=== PATIENT | male | born 1950 | race Caucasian/White ===

== ENCOUNTER 2022-12-20 09:09 | Inpatient (IN) | payer MEDICARE, OTHER ==
[~2022-12-20] VITALS: Ht 172.7 cm; Wt 93.5 kg
--- NOTE | 2022-12-20 09:26 | ED General ---
General Chief Complaint: Abdominal/GI Problems Stated Complaint: N/V History of Present Illness Date Seen by Provider: Dec 20, 2022 Time Seen by Provider: 09:26 Initial Comments Patient is a 72-year-old male brought to the emergency department by EMS after being found in the bathroom by his on the floor. Patient is unable to provide HPI, review of systems, past medical family or social history at this time due to illness. He seems very sleepy. Can answer yes and no but is not conversant. His is present for the history and states that he started running a fever last night. No complaints other than chills. Tmax in the middle the night 102. She states when he woke up this morning he was having nausea, vomiting and diarrhea. He has a history of rheumatoid arthritis on Rinvoq. He is also diabetic on metformin. Takes medication for his bladder. She was unable to get him up off the bathroom floor and called EMS. She is unsure if he hit his head. She is unsure of loss of consciousness as she was in the kitchen when he fell. No history of heart issues or heart disease. She did state that at 3 AM when he woke up he was having left axillary pain. Last Tylenol was at 3 AM. Patient presents quite tachycardic in the 130s. Normal blood pressure. Was satting 89% on room air on arrival. 1254 Further history per patient had a large engorged tick on his left shoulder on Tuesday of last week, 3 days ago. She was able to remove it. Patient has now had some diarrhea. Mental status remains the same. Fever 101 currently. Timing/Duration: 12-24 Hours Severity: Severe Associated Systoms: Fever/Chills, Malaise, Nausea/Vomiting, Weakness Allergies and Home Medications Allergies Coded Allergies: amoxicillin (Verified Allergy, Unknown, 12/20/22) Patient Home Medication List Home Medication List Reviewed: Yes Biotin (Biotin) 10,000 Mcg Capsule, 10,000 MCG PO DAILY, (Reported) Entered as Reported by: VALERIE RAMIREZ on 12/21/22 1021 Last Action: Held Cholecalciferol (Vitamin D3) (Vitamin D3) 50 Mcg (2000 Unit) Capsule, 50 MCG PO DAILY, (Reported) Entered as Reported by: VALERIE RAMIREZ on 12/21/22 1021 Last Action: Held Cyanocobalamin (Vitamin B-12) (Vitamin B-12) 1,000 Mcg Tablet, 1,000 MCG PO DAILY, (Reported) Entered as Reported by: VALERIE RAMIREZ on 12/21/221020 Last Action: Held Diclofenac Sodium (Diclofenac Sodium) 75 Mg Tablet.dr, 75 MG PO BID, (Reported) Entered as Reported by: VALERIE RAMIREZ on 12/21/221020 Last Action: Converted Finasteride (Finasteride) 5 Mg Tablet, 5 MG PO DAILY, (Reported) Entered as Reported by: VALERIE RAMIREZ on 12/21/221020 Last Action: Held Folic Acid (Folic Acid) 1 Mg Tablet, 1 MG PO DAILY, (Reported) Entered as Reported by: VALERIE RAMIREZ on 12/21/221020 Last Action: Continued Krill/Om-3/Dha/Epa/Phospho/Ast (Krill Oil 500 mg Softgel) 500MG-86MG Capsule, 1 EACH PO DAILY, (Reported) Entered as Reported by: VALERIE RAMIREZ on 12/21/221020 Last Action: Held Magnesium (Magnesium) 250 Mg Tablet, 250 MG PO DAILY, (Reported) Entered as Reported by: VALERIE RAMIREZ on 12/21/221020 Last Action: Held Metformin HCl (Metformin HCl) 500 Mg Tablet, 500 MG PO BID, (Reported) Entered as Reported by: VALERIE RAMIREZ on 12/21/221020 Last Action: Held Niacin (Niacin) 500 Mg Tablet, 1,000 MG PO DAILY, (Reported) Entered as Reported by: VALERIE RAMIREZ on 12/21/221020 Last Action: Held Pregabalin (Pregabalin) 100 Mg Capsule, 100 MG PO BID, (Reported) Entered as Reported by: VALERIE RAMIREZ on 12/21/221020 Last Action: Continued Rosuvastatin Calcium (Rosuvastatin Calcium) 20 Mg Tablet, 10 MG PO HS, (Reported) Entered as Reported by: VALERIE RAMIREZ on 12/21/221020 Last Action: Continued Tamsulosin HCl (Flomax) 0.4 Mg Cap, 0.4 MG PO DAILY, (Reported) Entered as Reported by: VALERIE RAMIREZ on 12/21/221020 Last Action: Continued Ubidecarenone (Coq-10) 100 Mg Capsule, 100 MG PO DAILY, (Reported) Entered as Reported by: VALERIE RAMIREZ on 12/21/22 1021 Last Action: Reviewed Upadacitinib (Rinvoq ER) 15 Mg Tab.er.24h, 15 MG PO DAILY, (Reported) Entered as Reported by: VALERIE RAMIREZ on 12/21/22 1021 Last Action: Reviewed Zinc Amino Acid Chelate (Zinc) 50 Mg Tablet, 50 MG PO DAILY, (Reported) Entered as Reported by: VALERIE RAMIREZ on 12/21/22 1021 Last Action: Held Review of Systems Review of Systems Constitutional: see HPI Unable to obtain from patient.; Review of systems obtained from -see HPI Physical Exam Vital Signs Vital Signs - First Documented 12/20/22 12/20/22 09:10 09:44 Temp 37.0 Pulse 147 Resp 20 B/P (MAP) 109/84 (92) Pulse Ox 89 O2 Delivery Nasal Cannula O2 Flow Rate 2.00 Capillary Refill : Height, Weight, BMI Height: '" Weight: lbs. oz. kg; BMI Method: General Appearance: WD/WN, Moderate Distress Eyes: Bilateral Eye Normal Inspection HEENT: PERRL/EOMI Neck: Normal Inspection, Lymphadenopathy (L), Lymphadenopathy (R) Respiratory: Lungs Clear, No Accessory Muscle Use, No Respiratory Distress, Other (tacypneic) Cardiovascular: Regular Rate, Rhythm, Tachycardia (130's) Gastrointestinal: Soft, Abnormal Bowel Sounds (hypoactive; a little distended), Guarding (voluntary) Back: Normal Inspection Extremity: Normal Capillary Refill, Normal Range of Motion, No Pedal Edema Neurologic/Psychiatric: Other (somnolent; rosable to sternal rub) Skin: Warm/Dry, Other (scattered superficial abrasions to arms and legs with mild erythema ) Focused Exam Lactate Level Time of Focused Exam: 11:30 Respiratory: Lungs Clear, Normal Breath Sounds, No Accessory Muscle Use, No Respiratory Distress Cardiovascular: Regular Rate, Rhythm, Tachycardia (122) Peripheral Pulses: 2+ Radial Pulses (R), 2+ Radial Pulses (L) Skin: warm/dry Lactic Acid Level Laboratory Tests Test 12/20/22 09:20 12/20/22 11:47 Lactic Acid Level 3.10 MMOL/L (0.50-2.00) *H 1.65 MMOL/L (0.50-2.00) Within 3hrs of presentation: Admin fluids, Admin ABX, Blood cultures prior to ABX's, Focus exam, Lactate level Progress/Results/Core Measures Suspected Sepsis SIRS Temperature: Pulse: Respiratory Rate: Blood Pressure / Mean: Laboratory Tests 12/20/22 09:20: INR Comment 1.0 Results/Orders Lab Results Laboratory Tests Test 12/20/22 09:20 12/20/22 09:33 12/20/22 09:50 12/20/22 11:47 Range/Units White Blood Count 5.6 4.3-11.0 10^3/uL Red Blood Count 5.25 4.30-5.52 10^6/uL Hemoglobin 15.7 13.3-17.7 g/dL Hematocrit 46 40-54 % Mean Corpuscular Volume 88 80-99 fL Mean Corpuscular Hemoglobin 30 25-34 pg Mean Corpuscular Hemoglobin Concent 34 32-36 g/dL Red Cell Distribution Width 13.5 10.0-14.5 % Platelet Count 182 130-400 10^3/uL Mean Platelet Volume 10.4 9.0-12.2 fL Immature Granulocyte % (Auto) 0 % Neutrophils (%) (Auto) 96 H 42-75 % Lymphocytes (%) (Auto) 1 L 12-44 % Monocytes (%) (Auto) 2 0-12 % Eosinophils (%) (Auto) 0 0-10 % Basophils (%) (Auto) 0 0-10 % Neutrophils # (Auto) 5.4 1.8-7.8 10^3/uL Lymphocytes # (Auto) 0.1 L 1.0-4.0 10^3/uL Monocytes # (Auto) 0.1 0.0-1.0 10^3/uL Eosinophils # (Auto) 0.0 0.0-0.3 10^3/uL Basophils # (Auto) 0.0 0.0-0.1 10^3/uL Immature Granulocyte # (Auto) 0.0 0.0-0.1 10^3/uL Neutrophils % (Manual) 81 % Lymphocytes % (Manual) 3 % Monocytes % (Manual) 3 % Eosinophils % (Manual) 0 % Basophils % (Manual) 0 % Metamyelocytes % 2 % Band Neutrophils 11 % Blood Morphology Comment NORMAL Prothrombin Time 13.7 12.2-14.7 SEC INR Comment 1.0 0.8-1.4 Activated Partial Thromboplast Time 24 24-35 SEC Sodium Level 137 135-145 MMOL/L Potassium Level 3.9 3.6-5.0 MMOL/L Chloride Level 104 98-107 MMOL/L Carbon Dioxide Level 19 L 21-32 MMOL/L Anion Gap 14 5-14 MMOL/L Blood Urea Nitrogen 15 7-18 MG/DL Creatinine 1.39 H 0.60-1.30 MG/DL Estimat Glomerular Filtration Rate 55 BUN/Creatinine Ratio 11 Glucose Level 151 H 70-105 MG/DL Lactic Acid Level 3.10 *H 1.65 0.50-2.00 MMOL/L Calcium Level 9.4 8.5-10.1 MG/DL Corrected Calcium 9.1 8.5-10.1 MG/DL Total Bilirubin 0.9 0.1-1.0 MG/DL Aspartate Amino Transf (AST/SGOT) 35 H 5-34 U/L Alanine Aminotransferase (ALT/SGPT) 48 0-55 U/L Alkaline Phosphatase 96 40-136 U/L Troponin I < 0.028 <0.028 NG/ML Total Protein 7.6 6.4-8.2 GM/DL Albumin 4.4 3.2-4.5 GM/DL SARS-CoV-2 RNA (RT-PCR) Not Detected Not Detecte Blood Gas Puncture Site L RAD Blood Gas Patient Temperature 103.9 Arterial Blood pH 7.34 *L 7.37-7.43 Arterial Blood Partial Pressure CO2 38 35-45 MMHG Arterial Blood Partial Pressure O2 90 79-93 MMHG Arterial Blood HCO3 19 L 23-27 MMOL/L Arterial Blood Total CO2 20.0 L 21.0-31.0 MMOL/L Arterial Blood Oxygen Saturation 96 94-100 % Arterial Blood Base Excess -5.2 L -2.5-2.5 MMOL/L [place] Test YES-POS Blood Gas Ventilator Setting NO Blood Gas Inspired Oxygen 2L Test 12/20/22 12:00 12/20/22 13:30 12/20/22 14:20 Range/Units Urine Color YELLOW Urine Clarity CLEAR Urine pH 5.5 5-9 Urine Specific [place] 1.020 1.016-1.022 Urine Protein TRACE H NEGATIVE Urine Glucose (UA) NEGATIVE NEGATIVE Urine Ketones TRACE H NEGATIVE Urine Nitrite NEGATIVE NEGATIVE Urine Bilirubin NEGATIVE NEGATIVE Urine Urobilinogen 0.2 < = 1.0 MG/DL Urine Leukocyte Esterase NEGATIVE NEGATIVE Urine RBC (Auto) NEGATIVE NEGATIVE Urine RBC NONE /HPF Urine WBC NONE /HPF Urine Squamous Epithelial Cells NONE /HPF Urine Crystals NONE /LPF Urine Bacteria NEGATIVE /HPF Urine Casts PRESENT /LPF Urine Hyaline Casts 0-2 H /LPF Urine Mucus NEGATIVE /LPF Urine Culture Indicated CULTURE PENDING Lyme Disease Screen IgG & IgM Ab 0.03 0.00-0.89 Index Lyme Antibody Interpretation Negative Negative Ehrlichia chaffeensis IgG Antibody <1:16 <1:16 Ehrlichia chaffeensis IgM Antibody <1:10 <1:10 Spotted Fever Group IgG Antibody <1:16 <1:16 Spotted Fever Group IgM Antibody <1:10 <1:10 [place] Antibody <1:20 Body Fluid Slide Review Yes CSF Tube Number 1 CSF Appearance CLEAR CSF Color COLORLESS CSF WBC 0.002 0-0.005 10^3/uL CSF RBC 0.001 H 0-0 10^6/uL CSF Mononuclear Cells % (Auto) 100.0 % CSF Polynuclear WBCs (%) 0.0 % CSF Glucose 88 H 50-80 MG/DL CSF Total Protein 48 H 15-40 MG/DL Micro Results Microbiology 12/20/22 Gram Stain - Final, Complete 12/20/22 CSF Culture - Final, Complete No growth 12/20/22 Gram Stain - Final, Complete 12/20/22 Wound Culture - Final, Complete Strep, Beta Hemolytic Group A See Comments Gram Pos Mixed Bacterial [place] 12/20/22 Urine Culture - Final, Complete NO GROWTH 12/20/22 Blood Culture - Preliminary, Resulted No growth 12/20/22 Blood Culture - Preliminary, Resulted No growth My Orders Orders - JAYDE ACUÑA MD Ekg Tracing (12/20/22 09:21) Cbc With Automated Diff (12/20/22 09:39) Comprehensive Metabolic Panel (12/20/22 09:39) Blood Culture (12/20/22 09:39) Sputum Culture (12/20/22 09:39) Urinalysis (12/20/22 09:39) Urine Culture (12/20/22 09:39) Protime With Inr (12/20/22 09:39) Partial Thromboplastin Time (12/20/22 09:39) Chest 1 View, Ap/Pa Only (12/20/22 09:39) Ed Iv/Invasive Line Start (12/20/22 09:39) Ed Iv/Invasive Line Start (12/20/22 09:39) Vital Signs Adult Sepsis Patie Q15M (12/20/22 09:39) O2 (12/20/22 09:39) Remove Rings In Anticipation O (12/20/22 09:39) Lactic Acid Analyzer (12/20/22 09:39) Covid 19 Inhouse Test (12/20/22 09:39) Troponin I [place] (12/20/22 09:39) Isolation Central Supply Req (12/20/22 09:39) Ct Head/Cervical Spine Wo (12/20/22 09:39) Arterial Blood Gas (12/20/22 09:50) Manual Differential (12/20/22 09:20) Ns Iv 1000 Ml (Sodium Chloride 0.9%) (12/20/22 10:44) Csf Cell Count (12/20/22 12:40) Csf Glucose (12/20/22 12:40) Csf Total Protein (12/20/22 12:40) Csf Culture (12/20/22 12:40) Meropenem (Merrem 1000 Mg) (12/20/22 12:40) Vancomycin Injection (Vancomycin Injecti (12/20/22 12:45) Doxycycline Injection (Vibramycin Inject (12/20/22 12:45) Tick Panel With Lyme Eia (12/20/22 12:55) Ed Admission (Communication) (12/20/22 12:55) Lumbar Puncture Under Fluoro (12/20/22 13:21) Consult Radiologist (12/20/22 13:25) Wound Culture (12/20/22 13:41) Ns Iv 1000 Ml (Sodium Chloride 0.9%) (12/20/22 14:45) Medications Given in ED Vital Signs/I&O 12/20/22 12/20/22 12/20/22 12/20/22 09:10 09:10 09:44 11:48 Temp 37.0 38.8 Pulse 147 140 122 Resp 20 26 B/P (MAP) 109/84 (92) 136/91 (106) 96/68 (77) Pulse Ox 89 93 O2 Delivery Nasal Cannula Room Air Nasal Cannula Nasal Cannula O2 Flow Rate 2.00 2.00 2.00 412/20/22 12/20/22 12/20/22 14:10 14:15 14:20 14:25 Pulse 118 120 120 122 Resp 22 22 22 22 B/P (MAP) 91/63 (72) 84/64 (71) 94/60 (71) 88/62 (71) Pulse Ox 98 97 98 98 O2 Delivery Nasal Cannula Nasal Cannula Nasal Cannula Nasal Cannula O2 Flow Rate 2.00 2.00 2.00 2.00 12/20/22 15:44 Pulse 130 Resp 30 B/P (MAP) 93/60 Pulse Ox 96 O2 Delivery Nasal Cannula O2 Flow Rate 2.00 Capillary Refill : Progress Note : Time: 14:52 Progress Note Patient seen and examined by me. Evaluation today includes physical exam and "septic work-up". Patient had CBC, Chem-12, coags, blood cultures, ABG, lactic acid, urinalysis, tick panel, lumbar puncture with CSF studies, chest x-ray, CT head without contrast CT cervical spine without contrast. EKG, COVID test. Pertinent physical exam findings well-developed well-nourished 72-year-old male, lethargic, one-word answers. Seems confused. Dry mucous membranes. HEENT exam otherwise normal. Lungs are clear heart is tachycardic in the 120s to 130. Abdomen is soft. Bowel sounds are present. Scattered abrasions to the bilateral upper extremities. 1 lesion approximately 2 cm left medial anterior lower leg with dark surrounding erythema and central necrotic area. Is not cavitary. Not draining. Does have some erythema to the torso and face, blanchable rash. Differential diagnosis based on history and physical exam severe sepsis, meningitis, pneumonia, tickborne illness. Independent review of the labs and imaging by me. CBC shows a normal total white count with greater than 90% segs. Chemistry normal sodium, potassium, chloride. CO2 of 19. BUN of 15 creatinine 1.39. Glucose 151. Lactic acid 3.1. Negative troponin. Normal LFTs. ABG shows a total pH of 7.34, PCO2 of 38 PO2 of 90 with a 96% saturation on 2 L of oxygen per nasal cannula. Coags are normal, UA is negative. CSF shows minimal whites and reds with a total protein of 48 and a glucose of 88. Chest x-ray shows no evidence of pneumonia. Head and neck CTs are negative. Cultures of a wound on his arm as well as CSF cultures urine culture blood cultures pending. Patient is treated aggressively with IV fluids in the emergency department a total of 3 L have been ordered. Meningitis coverage with Merrem 2 g, vancomycin 1 g and doxycycline 100 mg have been administered. Patient has had continued fever with some diarrhea. Patient's blood pressure has dropped down into the 80s systolic at the time of dictation and transfer to the ICU. Patient is admitted to Dr. Montero onto the hospitalist service. ECG Initial ECG Impression Date: Dec 20, 2022 Initial ECG Impression Time: 09:26 Initial ECG Rate: 139 Initial ECG Rhythm: S.Tach Initial ECG Intervals TX interval 135 QRS 87 QTc 505 Comment Sinus tachycardia without ectopy, poor R wave progression over the precordium, no ST segment elevation or depression is noted Diagnostic Imaging Diagonstic Imaging: Xray Plain Films/CT/US/NM/MRI: chest Comments [facility] [place], [place] NAME: MELONIE AQUINO [facility] REC#: [id number] PT STATUS: REG ER : 1950 PHYSICIAN: JAYDE ACUÑA MD ADMIT DATE: 12/20/22/ER Draft Date of Exam:12/20/22 CHEST 1 VIEW, AP/PA ONLY CLINICAL INDICATION: Patient nausea, vomiting, diarrhea and fever since yesterday. Patient had chest pain earlier today. EXAM: Portable chest x-ray upright view. COMPARISON: None. FINDINGS: Lungs/pleura: There is mild bibasilar atelectasis. Lungs are clear. There is no pneumothorax. There is no pleural effusion. Mediastinum: Unremarkable. Pulmonary vasculature: Unremarkable. Heart: There is mild cardiomegaly. Bones/extrathoracic soft tissue: There are degenerative spurs involving the thoracic spine. Left reverse total shoulder arthroplasty is seen. IMPRESSION: 1: There is mild bibasilar atelectasis. There is no radiographic evidence of acute cardiopulmonary process. 2: There is cardiomegaly with no significant pulmonary vascular congestion. Dictated on workstation # [id number] Dict: 12/20/22 1023 Trans: 12/20/22 1026 [id number] Interpreted by: DEBO MCCALLUM MD Electronically signed by: Diagonstic Imaging: CT Comments [facility]. [place], [place] NAME: MELONIE AQUINO [facility] REC#: [id number] PT STATUS: REG ER : 1950 PHYSICIAN: JAYDE ACUÑA MD ADMIT DATE: 12/20/22/ER Draft Date of Exam:12/20/22 CT HEAD/CERVICAL SPINE WO PROCEDURE: CT head and CT cervical spine without contrast. TECHNIQUE: Multiple contiguous axial images were obtained through the brain and cervical spine without the use of intravenous contrast. Sagittal and coronal reformations through the cervical spine were then performed. Auto Exposure Controls were utilized during the CT exam to meet ALARA standards for radiation dose reduction. INDICATION: Fall. No prior studies are available for comparison. CT HEAD: Ventricles and sulci are within normal limits. No sulcal effacement or midline shift is identified. No acute intra-axial or extra-axial hemorrhage is detected. Cisterns are patent. Visualized paranasal sinuses are clear. IMPRESSION: No acute intracranial process is detected. CT cervical spine: Curvature and alignment of cervical spine is normal. There is multilevel degenerative disc and facet disease. There is variable disc space narrowing and marginal spurring. No fractures are identified. Prevertebral tissues are within normal limits. Odontoid is intact. IMPRESSION: Cervical spondylosis. No acute bony abnormality is detected. Dictated on workstation # [id number] Dict: 12/20/22 1040 Trans: 12/20/22 1045 [id number] Interpreted by: HANNAH LIN MD Electronically signed by: Departure Communication (Admissions) Time/Spoke to Admitting Phy: 12:[address] Winston luque and VAnc Impression Primary Impression: Fever, unknown origin Additional Impression: Altered mental status Qualified Codes: R41.82 - Altered mental status, unspecified Disposition: ADMITTED INPATIENT Condition: Stable Admissions Decision to Admit Reason: Admit from ER (General) Decision to Admit/Date: Dec 20, 2022 Time/Decision to Admit Time: 10:43 JAYDE ACUÑA MD Dec 20, 2022 09:26
[2022-12-20 09:57] LABS: ALBUMIN 4.4 GM/DL (3.2-4.5)
[2022-12-20 09:57] LABS: ABG BASE EXCESS -5.2 MMOL/L (-2.5-2.5); ABG OXYGEN SATURATION 96 % (94-100); ABG PCO2 38 MMHG (35-45); ABG PO2 90 MMHG (79-93)
[2022-12-20 09:58] LABS: BASOPHILS % (AUTO) 0 % (0-10); CHLORIDE 104 MMOL/L (98-107); EOSINOPHILS % (AUTO) 0 % (0-10); HEMATOCRIT 46 % (40-54); HEMOGLOBIN 15.7 g/dL (13.3-17.7); LYMPHOCYTES # (AUTO) 0.1 10^3/uL (1.0-4.0); LYMPHOCYTES % (AUTO) 1 % (12-44); MEAN CORPUSCULAR HEMOGLOBIN 30 pg (25-34); MEAN CORPUSCULAR HGB CONC 34 g/dL (32-36); MEAN CORPUSCULAR VOLUME 88 fL (80-99); MEAN PLATELET VOLUME 10.4 fL (9.0-12.2); MONOCYTES # (AUTO) 0.1 10^3/uL (0.0-1.0); MONOCYTES % (AUTO) 2 % (0-12); NEUTROPHILS # (AUTO) 5.4 10^3/uL (1.8-7.8); NEUTROPHILS % (AUTO) 96 % (42-75); PLATELET COUNT 182 10^3/uL (130-400); POTASSIUM 3.9 MMOL/L (3.6-5.0); SODIUM 137 MMOL/L (135-145); WHITE BLOOD COUNT 5.6 10^3/uL (4.3-11.0)
[2022-12-20 09:59] LABS: ABG PH 7.34 (7.37-7.43); ALLENS TEST YES-POS; INSPIRED O2 2L; PATIENT TEMP 103.9; VENTILATOR NO
[2022-12-20 09:59] LABS: CALCIUM 9.4 MG/DL (8.5-10.1)
[2022-12-20 10:00] LABS: GLUCOSE 151 MG/DL (70-105); TOTAL PROTEIN 7.6 GM/DL (6.4-8.2)
[2022-12-20 10:01] LABS: CARBON DIOXIDE 19 MMOL/L (21-32); PROTHROMBIN TIME PATIENT 13.7 SEC (12.2-14.7)
[2022-12-20 10:02] LABS: BILIRUBIN,TOTAL 0.9 MG/DL (0.1-1.0)
[2022-12-20 10:04] LABS: ALKALINE PHOSPHATASE 96 U/L (40-136); CREATININE SERUM 1.39 MG/DL (0.60-1.30); GFR ESTIMATED 55
[2022-12-20 10:05] LABS: BUN/CREATININE RATIO 11
[2022-12-20 10:07] LABS: ALANINE AMINOTRANSFERASE 48 U/L (0-55)
[2022-12-20 10:26] LABS: BAND NEUTROPHILS 11 %; BASOPHILS % (MANUAL) 0 %; EOSINOPHILS % (MANUAL) 0 %; LYMPHOCYTES % (MANUAL) 3 %; METAMYELOCYTES % 2 %; MONOCYTES % (MANUAL) 3 %; NEUTROPHILS % (MANUAL) 81 %
--- NOTE | 2022-12-20 10:26 | Diagnostic Imaging Report ---
CLINICAL INDICATION: Patient nausea, vomiting, diarrhea and fever since yesterday. Patient had chest pain earlier today. EXAM: Portable chest x-ray upright view. COMPARISON: None. FINDINGS: Lungs/pleura: There is mild bibasilar atelectasis. Lungs are clear. There is no pneumothorax. There is no pleural effusion. Mediastinum: Unremarkable. Pulmonary vasculature: Unremarkable. Heart: There is mild cardiomegaly. Bones/extrathoracic soft tissue: There are degenerative spurs involving the thoracic spine. Left reverse total shoulder arthroplasty is seen. IMPRESSION: 1: There is mild bibasilar atelectasis. There is no radiographic evidence of acute cardiopulmonary process. 2: There is cardiomegaly with no significant pulmonary vascular congestion. Dictated by: Dictated on workstation # [id number]
[2022-12-20 10:27] LABS: RBC MORPH NORMAL
[2022-12-20] MEDS ORDERED: NS IV 1000 ML 1,000 ML IV STA ×2 (10:44→14:45)
--- NOTE | 2022-12-20 10:46 | Diagnostic Imaging Report ---
PROCEDURE: CT head and CT cervical spine without contrast. TECHNIQUE: Multiple contiguous axial images were obtained through the brain and cervical spine without the use of intravenous contrast. Sagittal and coronal reformations through the cervical spine were then performed. Auto Exposure Controls were utilized during the CT exam to meet ALARA standards for radiation dose reduction. INDICATION: Fall. No prior studies are available for comparison. CT HEAD: Ventricles and sulci are within normal limits. No sulcal effacement or midline shift is identified. No acute intra-axial or extra-axial hemorrhage is detected. Cisterns are patent. Visualized paranasal sinuses are clear. IMPRESSION: No acute intracranial process is detected. CT cervical spine: Curvature and alignment of cervical spine is normal. There is multilevel degenerative disc and facet disease. There is variable disc space narrowing and marginal spurring. No fractures are identified. Prevertebral tissues are within normal limits. Odontoid is intact. IMPRESSION: Cervical spondylosis. No acute bony abnormality is detected. Dictated by: Dictated on workstation # [id number]
[2022-12-20 12:09] LABS: BILIRUBIN,URINE NEGATIVE (NEGATIVE); CLARITY,URINE CLEAR; COLOR,URINE YELLOW; GLUCOSE, URINE (UA) NEGATIVE (NEGATIVE); KETONES,URINE TRACE (NEGATIVE); LEUKOCYTE ESTERASE ,URINE NEGATIVE (NEGATIVE); NITRITE,URINE NEGATIVE (NEGATIVE); PH,URINE 5.5 (5-9); PROTEIN,URINE TRACE (NEGATIVE)
[2022-12-20 12:15] LABS: BACTERIA,URINE NEGATIVE /HPF
[2022-12-20 12:16] LABS: HYALINE CASTS, URINE 0-2 /LPF
[2022-12-20] MEDS ORDERED: MEROPENEM 2,000 MG in NS (IVPB) 100 ML IV STA (12:40)
[2022-12-20] MEDS ORDERED: DOXYCYCLINE INJECTION 100 MG in NS (IVPB) 100 ML IV ONE (12:45)
[2022-12-20] MEDS ORDERED: VANCOMYCIN INJECTION 1,000 MG in NS (IVPB) 250 ML IV ONE (12:45)
--- NOTE | 2022-12-20 13:24 | History & Physical-Hospitalist ---
History of Present Illness HPI/Chief Complaint Pt is a 72CM with a PMH of RA who presented to the ER due to AMS and fever. He is unable to provide any history. provides all history. He was fine two days ago but developed fever and chills yesterday. These progressed overnight and states he was vomiting and had diarrhea as well. She then found him down on the bathroom floor. She is unsure if he hit his head but is not as his basleine mentation. He had no focal ndeficits and CT head was done and negative for ICH. He was found to have a bandemia and fever. COVID was negative and no obvious source of infection was found. He was started on menigitis cover. later reports tick being found on him last week that she removed. No obvious rash though. Source: patient Date Seen 12/20/22 Time Seen by a Provider: 13:21 Attending Physician Jason Grijalva DO PCP Admitting Physician: Attending Physician: Referring Physician Date of Admission Home Medications & Allergies Home Medications Reviewed patient Home Medication Reconciliation performed by pharmacy medication reconciliations collections technician and/or nursing. Patients Allergies have been reviewed. Allergies Allergies Coded Allergies amoxicillin (Verified Allergy, Unknown, 12/20/22) Past Fvfimbd-Wwcczu-Rnchvx Hx Patient Social History Tobacco Use?: Yes Smokeless type used: Chew Smokeless Tobacco Frequency: Current Everyday User Substance use?: No Alcohol Use?: No Pt feels they are or have been: No Current Status Advance Directives: No Communicates: Verbally Primary Language: Colombian Preferred Spoken Language: Colombian Review of Systems Constitutional: see HPI Physical Exam Physical Exam Vital Signs Vital Signs - First Documented 12/20/22 12/20/22 09:10 09:44 Temp 37.0 Pulse 147 Resp 20 B/P (MAP) 109/84 (92) Pulse Ox 89 O2 Delivery Nasal Cannula O2 Flow Rate 2.00 Capillary Refill : Less Than 3 Seconds Height, Weight, BMI Height: '" Weight: lbs. oz. kg; BMI Method: General Appearance: Other (drowsy, sleeping soundly) Respiratory: Lungs Clear, No Respiratory Distress Cardiovascular: No Murmur, Tachycardia Gastrointestinal: Normal Bowel Sounds, Non Tender, Soft Extremity: No Calf Tenderness, No Pedal Edema Neurologic/Psychiatric: Alert (woke up with raised voice but otherwise sleeping throughout ) Results Results/Procedures Labs Laboratory Tests 12/20/22 09:20 12/21/22 03:43 Patient resulted labs reviewed. Imaging: Reviewed Imaging Report Imaging [facility]. [place], [place] NAME: MELONIE AQUINO [facility] REC#: [id number] PT STATUS: REG ER : 1950 PHYSICIAN: JAYDE ACUÑA MD ADMIT DATE: 12/20/22/ER Draft Date of Exam:12/20/22 CHEST 1 VIEW, AP/PA ONLY CLINICAL INDICATION: Patient nausea, vomiting, diarrhea and fever since yesterday. Patient had chest pain earlier today. EXAM: Portable chest x-ray upright view. COMPARISON: None. FINDINGS: Lungs/pleura: There is mild bibasilar atelectasis. Lungs are clear. There is no pneumothorax. There is no pleural effusion. Mediastinum: Unremarkable. Pulmonary vasculature: Unremarkable. Heart: There is mild cardiomegaly. Bones/extrathoracic soft tissue: There are degenerative spurs involving the thoracic spine. Left reverse total shoulder arthroplasty is seen. IMPRESSION: 1: There is mild bibasilar atelectasis. There is no radiographic evidence of acute cardiopulmonary process. 2: There is cardiomegaly with no significant pulmonary vascular congestion. Dictated on workstation # [id number] Dict: 12/20/22 1023 Trans: 12/20/22 1026 [id number] Interpreted by: DEBO MCCALLUM MD Electronically signed by: Assessment/Plan Admission Diagnosis Sepsis Admission Status: Inpatient Order (span 2 midnights) Reason for Inpatient Admission: see below Assessment and Plan Sepsis AMS Recent tick bite Source unclear Continue IV abx, cover for meningitis (Vanc and Merrem due to PCN allergy) Dr Torres consulted, for possible LP Doxy added due to tick bite tick panel ordered Repeat CXR in the AM CT head negative RA Immune compromised HLD NIDDMII BPH No acute needs DV ppx: SCDs only for LP Diagnosis/Problems Diagnosis/Problems (1) Sepsis (2) Altered mental status Status: Acute Qualifiers: Altered mental status type: unspecified Qualified Codes: R41.82 - Altered mental status, unspecified DAVID BOYKIN MD Dec 20, 2022 1:24 pm
[2022-12-20] MEDS ORDERED: LIDOCAINE 1% INJ 10 ML VIAL INJ ONE (13:30)
[2022-12-20 14:42] LABS: RED BLOOD CELL,CSF 0.001 10^6/uL (0-0); WHITE BLOOD CELL,CSF 0.002 10^3/uL (0-0.005)
[2022-12-20 14:47] LABS: CSF GLUCOSE 88 MG/DL (50-80)
[2022-12-20 14:53] LABS: CSF TOTAL PROTEIN 48 MG/DL (15-40)
[2022-12-20 15:15] LABS: APPEARANCE,CSF CLEAR; COLOR,CSF COLORLESS; CSF TUBE NUMBER 1
--- NOTE | 2022-12-20 15:19 | Diagnostic Imaging Report ---
INDICATION: Altered mental status and fever. Patient was brought to the procedure room and placed on table in the prone position. Low back was prepped and draped in the usual sterile fashion. A small amount of 1% lidocaine was utilized for local anesthesia. A 22-gauge needle was advanced into the lumbar thecal sac at the L3 level. Approximately 3 mL of clear, colorless cerebrospinal fluid was removed. 9 seconds of fluoroscopic time was utilized. Needle was removed, and hemostasis was obtained. Patient tolerated the procedure well and left the department in stable condition. IMPRESSION: Successful fluoroscopically assisted lumbar puncture, obtaining 3 mL of clear cerebrospinal fluid. Dictated by: Dictated on workstation # [id number]
[2022-12-20] MEDS ORDERED: MILK OF MAGNESIA 400 MG/5 ML 30 ML UDC PO PRN (16:15)
[2022-12-20] MEDS ORDERED: BISACODYL 10 MG SUPP (DULCOLAX) PR PRN (16:15)
[2022-12-20] MEDS ORDERED: ANTACID SUSP 30 ML UDC (MYLANTA) PO PRN (16:15)
[2022-12-20] MEDS ORDERED: BENZONATATE 100 MG (TESSALON) CAPSULE PO PRN (16:15)
[2022-12-20] MEDS ORDERED: VANCOMYCIN INJECTION 0.1 MG in NS (IVPB) 250 ML IV SCH (16:15)
[2022-12-20] MEDS ORDERED: ONDANSETRON 4 MG/2 ML (SDV) Z0FRAN IV PRN (16:15)
[2022-12-20] MEDS: LACTATED RINGERS 1,000 ML IV SCH (16:55)
--- NOTE | 2022-12-20 17:11 | Tele-ICU Consult ---
History of Present Illness History of Present Illness Date Seen by Provider: Dec 20, 2022 Time Seen by Provider: 17:09 Date of Admission (Tele-ICU Physician , consultation as per request of PCP Service provided via interactive audio and video telecommunPearescope E-CARE system to a patient admitted to ICU bed in [facility]. Available chart/ vitals / labs / Images reviewed H&P is from ER notes Patient's information available about PMH, Shx, Fhx allergy reviewed inEMR. ROS as per chart and RN report Now in ICU, hemodynamically stable Video assessment done using teleICU camera, rest of exam as per RN Discussed with RN. Hospital course: (12/20) 72M Admitted with Sepsis, fever 102 , AMS, and recent tick bite. 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 F - no clear sourse of infection , IMMUNOCOMPROMIZED on Rinvoq -LP 12/20 - CSF studies with protein of 48 and a glucose of 88 , cultures pending - h/o large engorged tick on his left shoulder 3 days TEACHER'S AIDE- tick panel pending - N/V / diarrhea reported at home - - empirically covered with Merrem, vancomycin and doxycycline Sepsis - received 3 L NS - cont hydration - lactate improving Acute mental starus changes - most likely TME with inferction / fever +/- neuro infecttion - CTH - no acute findings s/p fall at home - no evidence of traume as per bedside MD assessment - CTH and neck - negative DEVORAH - provbably dehydration - cont volume resuscitation , if not voiding -> bladder scan and repeat labs - cont NS noq DM II - on metformin TEACHER'S AIDE - ISS RA - on Rinvoq TEACHER'S AIDE ( prednisone course 10/24 - for 3 days for bronhitis Lines : periph , (Central Line Necessity Reviewed) Browne: voiding OG: Nutrition: Analgesia: Anxiety/ delirium VTE Prophylaxis: scd Stress Ulcer Prophylaxis: na Plans in collaboration with bedside consultants and IM MDs- discussed with Dr Montero Discussed with RN to reach out if any questions or concerns A total of 33 minutes of critical care time was devoted to this patient today, required to treat and/or prevent further deterioration of critical care condition ( as above ) . I am remotely monitoring this patient from another state. I am unable to do the bedside exam, and history/physical and pertinent information is taken from other notes in the computer and bedside staff. . Allergies and Home Medications Allergies Coded Allergies: amoxicillin (Verified Allergy, Unknown, 12/20/22) Past Medical/Social/Family Hx Patient Social History Tobacco Use?: Yes Smokeless type used: Chew Smokeless Tobacco Frequency: Current Everyday User Use of E-Cig and/or Vaping dev: No Substance use?: No Alcohol Use?: No Pt stated abuse/neglect: No Immunizations Up To Date Influenza Vaccine Up-to-Date: Yes; Up-to-Date Current Status Advance Directives: Yes Advance Directive Location: Family to bring in copy Communicates: Verbally Primary Language: Guyanese Preferred Spoken Language: Guyanese Sensory deficits: Vision impairment Implanted or Applied Medical D: None Review of Systems Constitutional: see HPI Focused Exam Lactate Level 12/20/22 09:20: Lactic Acid Level 3.10*H 12/20/22 11:47: Lactic Acid Level 1.65 12/20/22 16:23: Lactic Acid Level 2.72*H Height, Weight, BMI Height: '" Weight: lbs. oz. kg; BMI Method: Time of Focused Exam: 11:30 Lactic Acid Level Laboratory Tests Test 12/20/22 16:23 Lactic Acid Level 2.72 MMOL/L (0.50-2.00) *H Within 3hrs of presentation: Admin fluids, Admin ABX, Blood cultures prior to ABX's, Focus exam, Lactate level Exam Exam Patient acknowledged, consented, and participated in this virtual visit which was conducted using real time audio/video Vital Signs Date Time Temp Pulse Resp B/P (MAP) Pulse Ox O2 Delivery O2 Flow Rate FiO2 12/20/22 15:44 130 30 93/60 96 Nasal Cannula 2.00 12/20/22 14:25 122 22 88/62 (71) 98 Nasal Cannula 2.00 12/20/22 14:20 120 22 94/60 (71) 98 Nasal Cannula 2.00 12/20/22 14:15 120 22 84/64 (71) 97 Nasal Cannula 2.00 12/20/22 14:10 118 22 91/63 (72) 98 Nasal Cannula 2.00 12/20/22 14:00 38.1 133 16 91/62 (72) 100 Nasal Cannula 2.00 12/20/22 11:48 38.8 122 26 96/68 (77) Nasal Cannula 2.00 12/20/22 09:44 140 20 136/91 (106) 93 Nasal Cannula 2.00 12/20/22 09:10 37.0 147 109/84 (92) 89 Room Air 12/20/22 09:10 Nasal Cannula 2.00 Height & Weight Height: '" Weight: lbs. oz. kg; BMI Method: General Appearance: No Apparent Distress, WD/WN, Moderate Distress HEENT: PERRL/EOMI Neck: Normal Inspection, Lymphadenopathy (L), Lymphadenopathy (R) Respiratory: Lungs Clear, Normal Breath Sounds, No Accessory Muscle Use, No Respiratory Distress Cardiovascular: Regular Rate, Rhythm, Tachycardia (122) Capillary Refill: Less Than 3 Seconds Peripheral Pulses: 2+ Radial Pulses (R), 2+ Radial Pulses (L) Extremity: Normal Capillary Refill, Normal Range of Motion, No Pedal Edema Neurologic/Psychiatric: Other (somnolent; rosable to sternal rub) Skin: Warm/Dry, Other (scattered superficial abrasions to arms and legs with mild erythema ) Results Lab Laboratory Tests 12/20/22 09:20 Assessment/Plan Assessment/Plan 1 ADONIS TRUONG MD Dec 20, 2022 17:10
[2022-12-20] MEDS: inSUlin ASPART (NovoLOG) 1 UNIT/0.01 ML (CHARGE PER UNIT) SC SCH (17:57)
[2022-12-20] MEDS ORDERED: VANCOMYCIN 750 MG/NS 250 ML IVPB IV NR ×2 (18:00)
[2022-12-20] MEDS ORDERED: DOXYCYCLINE 100 MG INJ (VIBRAMYCIN) ONE (19:40)
[2022-12-20] MEDS: DOXYCYCLINE INJECTION 100 MG in NS (IVPB) 100 ML IV SCH (20:19)
[2022-12-20] MEDS ORDERED: DOXYCYCLINE 100 MG INJ (VIBRAMYCIN) IV SCH (21:00)
[2022-12-20] MEDS ORDERED: inSUlin ASPART (NovoLOG) 1 UNIT/0.01 ML (CHARGE PER UNIT) SC SCH (21:00)
[2022-12-20] MEDS: MEROPENEM 500 MG in NS (IVPB) 100 ML IV SCH (21:18)
[2022-12-20] MEDS ORDERED: NOREPINEPHRINE 8 MG/250 ML 250 ML IV ONE (22:53)
[2022-12-20] MEDS: NOREPINEPHRINE 8 MG/250 ML 250 ML IV SCH (22:56)
[2022-12-20] MEDS ORDERED: LACTATED RINGERS 1,000 ML IV SCH (23:00)
[2022-12-21] MEDS: inSUlin ASPART (NovoLOG) 1 UNIT/0.01 ML (CHARGE PER UNIT) SC SCH ×4 (00:26→18:14)
[2022-12-21] MEDS: LACTATED RINGERS 1,000 ML IV SCH ×4 (00:27→17:53)
[2022-12-21 00:41] LABS: ABG BASE EXCESS -6.6 MMOL/L (-2.5-2.5); ABG OXYGEN SATURATION 98 % (94-100); ABG PCO2 27 MMHG (35-45); ABG PH 7.41 (7.37-7.43); ABG PO2 95 MMHG (79-93); ABG TCO2 18.1 MMOL/L (21.0-31.0); ALLENS TEST YES-POS; VENTILATOR NO
[2022-12-21 00:42] LABS: PATIENT TEMP 36.3
[2022-12-21] MEDS ORDERED: NS IV 500 ML 500 ML IV PRN (01:30)
[2022-12-21] MEDS: ACETAMINOPHEN 500 MG TAB (TYLENOL) PO PRN ×4 (04:55→21:16)
[2022-12-21] MEDS: MEROPENEM 500 MG in NS (IVPB) 100 ML IV SCH ×3 (04:55→17:53)
[2022-12-21 04:56] LABS: BASOPHILS % (AUTO) 0 % (0-10); EOSINOPHILS # (AUTO) 0.1 10^3/uL (0.0-0.3); EOSINOPHILS % (AUTO) 1 % (0-10); HEMATOCRIT 38 % (40-54); HEMOGLOBIN 12.9 g/dL (13.3-17.7); LYMPHOCYTES # (AUTO) 0.2 10^3/uL (1.0-4.0); LYMPHOCYTES % (AUTO) 1 % (12-44); MEAN CORPUSCULAR HEMOGLOBIN 30 pg (25-34); MEAN CORPUSCULAR HGB CONC 34 g/dL (32-36); MEAN CORPUSCULAR VOLUME 88 fL (80-99); MEAN PLATELET VOLUME 10.9 fL (9.0-12.2); MONOCYTES % (AUTO) 7 % (0-12); NEUTROPHILS # (AUTO) 12.5 10^3/uL (1.8-7.8); NEUTROPHILS % (AUTO) 90 % (42-75); PLATELET COUNT 205 10^3/uL (130-400); WHITE BLOOD COUNT 13.8 10^3/uL (4.3-11.0)
[2022-12-21 05:19] LABS: BILIRUBIN,TOTAL 0.9 MG/DL (0.1-1.0); CALCIUM 7.6 MG/DL (8.5-10.1); CREATININE SERUM 1.23 MG/DL (0.60-1.30); POTASSIUM 3.4 MMOL/L (3.6-5.0); TOTAL PROTEIN 5.3 GM/DL (6.4-8.2)
[2022-12-21] MEDS: KCL 20 MEQ TAB (K-DUR) PO SCH (05:42)
[2022-12-21] MEDS: POTASSIUM CL 10MEQ/50ML IVPB 50 ML IV SCH (05:42)
[2022-12-21 06:58] LABS: MAGNESIUM 1.3 MG/DL (1.6-2.4); PHOSPHORUS 2.6 MG/DL (2.3-4.7)
[2022-12-21] MEDS: NOREPINEPHRINE 8 MG/250 ML 250 ML IV SCH (07:12)
[2022-12-21] MEDS: MAGNESIUM 1 GM/100 ML IVPB 100 ML IV SCH ×7 (07:22→20:09)
[2022-12-21] MEDS ORDERED: KCL 20 MEQ TAB (K-DUR) PO ONE (09:00)
[2022-12-21] MEDS: DOXYCYCLINE INJECTION 100 MG in NS (IVPB) 100 ML IV SCH ×2 (10:07→20:32)
[2022-12-21] MEDS ORDERED: UPAD15TA PO (10:21)
[2022-12-21] MEDS ORDERED: FOLI1TAB33 PO (10:21)
[2022-12-21] MEDS ORDERED: NIAC500T9 PO (10:21)
[2022-12-21] MEDS ORDERED: ZINC50TA51 PO (10:21)
[2022-12-21] MEDS ORDERED: CHOL20002 PO (10:21)
[2022-12-21] MEDS ORDERED: METF-397 PO (10:21)
[2022-12-21] MEDS ORDERED: FINA5TAB6 PO (10:21)
[2022-12-21] MEDS ORDERED: PREG100C55 PO (10:21)
[2022-12-21] MEDS ORDERED: CYAN-41 PO (10:21)
[2022-12-21] MEDS ORDERED: DICL75TA2 PO (10:21)
[2022-12-21] MEDS ORDERED: MAGN250T31 PO (10:21)
[2022-12-21] MEDS ORDERED: TMSL.4C PO (10:21)
[2022-12-21] MEDS ORDERED: ROSU20TA32 PO (10:21)
[2022-12-21] MEDS ORDERED: UBID100C17 PO (10:21)
[2022-12-21] MEDS ORDERED: KRIL1CAP31 PO (10:21)
[2022-12-21] MEDS ORDERED: BIOT10005 PO (10:21)
--- NOTE | 2022-12-21 11:15 | Progress Note - Hospitalist ---
Subjective HPI/CC On Admission Date Seen by Provider: Dec 21, 2022 Pt is a 72CM with a PMH of RA who presented to the ER due to AMS and fever. He is unable to provide any history. provides all history. He was fine two days ago but developed fever and chills yesterday. These progressed overnight and states he was vomiting and had diarrhea as well. She then found him down on the bathroom floor. She is unsure if he hit his head but is not as his basleine mentation. He had no focal ndeficits and CT head was done and negative for ICH. He was found to have a bandemia and fever. COVID was negative and no obvious source of infection was found. He was started on menigitis cover. later reports tick being found on him last week that she removed. No obvious rash though. Subjective/Events-last exam Pt reports doing better today. Mentation much improved. No family at bedside. Focused Exam Lactate Level 12/20/22 16:23: Lactic Acid Level 2.72*H 12/20/22 18:52: Lactic Acid Level 2.47*H 12/20/22 20:52: Lactic Acid Level 1.81 Time of Focused Exam: 11:30 Objective Exam Vital Signs Vital Signs Date Time Temp Pulse Resp B/P (MAP) Pulse Ox O2 Delivery O2 Flow Rate FiO2 12/21/22 10:00 109 40 103/71 (82) 96 Room Air 12/21/22 07:29 35.9 12/20/22 19:46 Capillary Refill : Less Than 3 Seconds General Appearance: No Apparent Distress, WD/WN Respiratory: Lungs Clear, No Respiratory Distress Cardiovascular: Regular Rate, Rhythm, No Murmur Neurologic/Psychiatric: Alert, Oriented x3 Results/Procedures Lab Laboratory Tests 12/21/22 03:43 Patient resulted labs reviewed. Imaging: Reviewed Imaging Report Assessment/Plan Assessment and Plan Assess & Plan/Chief Complaint Septic shock AMS Recent tick bite Source remains unclear Progress overnight to needing pressors- wean as able Continue IV abx as he is improving LP done 12/20- CSF with no growth today and cell count not indicative of meningitis tick panel ordered- lyme and tularemia negative, others still pending Repeat CXR pending CT head negative RA Immune compromised HLD NIDDMII BPH No acute needs Resume Proscar DV ppx: Lovenox Diagnosis/Problems Diagnosis/Problems (1) Sepsis (2) Altered mental status Status: Acute Qualifiers: Altered mental status type: unspecified Qualified Codes: R41.82 - Altered mental status, unspecified Clinical Quality Measures AMI/AHF: ASA po Prior to arrival: DAVID Snaabria MD Dec 21, 2022 11:15 am
[2022-12-21] MEDS: FINASTERIDE (PROSCAR) 5 MG TAB PO SCH (11:28)
[2022-12-21] MEDS: NS IV 500 ML 500 ML IV SCH ×3 (11:29→14:11)
--- NOTE | 2022-12-21 11:30 | Diagnostic Imaging Report ---
INDICATION: Sepsis. TECHNIQUE: Single view chest at 11:09 AM. CORRELATION STUDY: 12/20/2022. FINDINGS: The heart size is enlarged. The vasculature is slightly increased. Minimal perihilar opacity may reflect minimal infiltrate or edema. The peripheral lung anna are otherwise clear and unremarkable. Post operative changes of the left shoulder. IMPRESSION: Minimal perihilar opacities may reflect very mild edema versus infiltrate. Dictated by: Dictated on workstation # [id number]
--- NOTE | 2022-12-21 12:16 | Tele-ICU Progress Note ---
Subjective Date Seen by a Provider: Dec 21, 2022 Time Seen by a Provider: 12:15 Subjective/Events-last exam (Tele-ICU Physician , Consultation as per PCP) Service provided via interactive audio and video telecommunications E-CARE system to a patient admitted to ICU bed in [facility]. Available chart/ vitals / labs / Images reviewed Video assessment done using teleICU camera, rest of exam as per RN HPI: 72M hx of RA presented to ED with AMS and fever X 2 days. Admitted with Sepsis, fever 102, AMS, and recent tick bite. LP and tick panel done Subjective: No major events overnight. Noted to have improvement in mental status however remains hypotensive and requiring levophed to maintain MAP > 65. Also slight rise in leukocytosis (WBC 13.8 today) despite broad spectrum antibiotics. A/P: Neuro: Improved A&OX 3. CT head upon admission stable CV: Stable, currently on low dose levophed. Will cont to wean. Unclear re source of shock. If unable to wena will need PICC line Resp: Stable on RA ID: Leukocytosis remainselevated. Unclear etiology -Currently on Vanc, Patsy and doxycycline. Will cont -Await cultures -LP 12/20 - CSF studies with protein of 48 and a glucose of 88 , cultures pending - h/o large engorged tick on his left shoulder 3 days CUTTER HOT KNIFE- tick panel pending -can consider CT c/a/p if still with pressor requirement. Renal: DEVORAH likely 2/2 shock: Improved with hydration. - cont volume resuscitation GI: No further episodes of n/v. Will start on Heart healthy diet Endo: DM II - on metformin CUTTER HOT KNIFE - ISS Rheum: Hx of RA on Rinvoq CUTTER HOT KNIFE Lines : periph , (Central Line Necessity Reviewed) PPx: SCD Plans in collaboration with bedside consultants and IM MDs Discussed with RN to reach out if any questions or concerns A total of 35 minutes of critical care time was devoted to this patient today, required to treat and/or prevent further deterioration of critical care condition ( as above) I am remotely monitoring this patient from another state. I am unable to do the bedside exam, and history/physical and pertinent information is taken from other notes in the computer and bedside staff. Sepsis Event Evaluation Height, Weight, BMI Height: '" Weight: lbs. oz. kg; 28.90 BMI Method: Focused Exam Lactate Level 12/20/22 16:23: Lactic Acid Level 2.72*H 12/20/22 18:52: Lactic Acid Level 2.47*H 12/20/22 20:52: Lactic Acid Level 1.81 Time of Focused Exam: 11:30 Exam Exam Patient acknowledged, consented, and participated in this virtual visit which was conducted using real time audio/video Vital Signs Date Time Temp Pulse Resp B/P (MAP) Pulse Ox O2 Delivery O2 Flow Rate FiO2 12/21/22 12:05 38.3 12/21/22 11:54 36.4 12/21/22 10:00 109 40 103/71 (82) 96 Room Air 12/21/22 09:00 98 24 97/79 (85) 100 Room Air 12/21/22 08:00 98 10 103/72 (82) 93 Room Air 12/21/22 07:29 35.9 12/21/22 07:19 78 12/21/22 07:12 99 112/71 12/21/22 07:00 88 23 110/70 (83) 98 Room Air 12/21/22 06:00 99 27 112/71 (85) 98 Room Air 12/21/22 05:00 89 25 97/68 (78) 99 Room Air 12/21/22 04:13 98 Room Air 12/21/22 04:13 36.7 Room Air 12/21/22 04:00 90 27 103/58 (73) 100 Room Air 12/21/22 03:00 92 22 98/70 (79) 100 Room Air 12/21/22 02:00 97 25 109/76 (87) 100 Room Air 12/21/22 01:00 104 17 95/74 (81) 97 Room Air 12/21/22 00:59 98 12/21/22 00:58 99 Room Air 12/21/22 00:00 102 13 92/72 (79) 97 Room Air 12/20/22 23:00 109 28 74/54 (61) 98 Room Air 12/20/22 22:56 109 84/57 12/20/22 22:00 118 30 78/50 (59) 96 Room Air 12/20/22 21:00 109 26 84/57 (66) 97 Room Air 12/20/22 20:00 117 25 91/57 (68) 99 Room Air 12/20/22 20:00 98 Room Air 12/20/22 19:46 37.6 Room Air 12/20/22 19:04 124 12/20/22 19:00 125 19 92/61 (71) 100 Nasal Cannula 2.00 12/20/22 18:30 115 24 93/54 (67) 100 Nasal Cannula 2.00 12/20/22 18:00 121 26 90/60 (70) 100 Nasal Cannula 2.00 12/20/22 17:30 115 22 90/59 (69) 100 Nasal Cannula 2.00 12/20/22 17:26 37.9 12/20/22 17:00 120 25 90/61 (71) 100 Nasal Cannula 2.00 12/20/22 16:45 128 20 91/61 (71) 100 Nasal Cannula 2.00 12/20/22 16:30 120 24 95/60 (72) 100 Nasal Cannula 2.00 12/20/22 16:15 121 21 89/61 (70) 100 Nasal Cannula 2.00 12/20/22 16:15 Nasal Cannula 2.00 12/20/22 16:12 125 12/20/22 16:00 38.1 133 16 91/62 (72) 100 Nasal Cannula 2.00 12/20/22 15:44 130 30 93/60 96 Nasal Cannula 2.00 12/20/22 14:25 122 22 88/62 (71) 98 Nasal Cannula 2.00 12/20/22 14:20 120 22 94/60 (71) 98 Nasal Cannula 2.00 12/20/22 14:15 120 22 84/64 (71) 97 Nasal Cannula 2.00 12/20/22 14:10 118 22 91/63 (72) 98 Nasal Cannula 2.00 I & O 12/21/22 07:00 Intake Total 3920 ml Output Total 1175 ml Balance 2745 ml Height & Weight Height: '" Weight: lbs. oz. kg; 28.90 BMI Method: General Appearance: Other (drowsy, sleeping soundly) HEENT: PERRL/EOMI Neck: Normal Inspection, Lymphadenopathy (L), Lymphadenopathy (R) Respiratory: Lungs Clear, No Respiratory Distress Cardiovascular: No Murmur, Tachycardia Capillary Refill: Less Than 3 Seconds Peripheral Pulses: 2+ Radial Pulses (R), 2+ Radial Pulses (L) Extremity: No Calf Tenderness, No Pedal Edema Neurologic/Psychiatric: Alert (woke up with raised voice but otherwise sleeping throughout ) Skin: Warm/Dry, Other (scattered superficial abrasions to arms and legs with mild erythema ) Results Lab Laboratory Tests 12/20/22 09:20 12/21/22 03:43 Assessment/Plan Assessment/Plan . ART MCKEON MD Dec 21, 2022 12:16
[2022-12-21] MEDS ORDERED: VANCOMYCIN 1250MG/250ML PREMIX 250 ML IV SCH (15:00)
[2022-12-21] MEDS: MELATONIN 3 MG TABLET PO PRN (21:16)
[2022-12-22] MEDS: inSUlin ASPART (NovoLOG) 1 UNIT/0.01 ML (CHARGE PER UNIT) SC SCH ×4 (00:03→17:44)
[2022-12-22] MEDS: MEROPENEM 500 MG in NS (IVPB) 100 ML IV SCH ×5 (00:03→23:21)
[2022-12-22] MEDS: LACTATED RINGERS 1,000 ML IV SCH ×2 (00:04→06:54)
[2022-12-22 05:05] LABS: ALBUMIN 2.9 GM/DL (3.2-4.5); BASOPHILS % (AUTO) 1 % (0-10); EOSINOPHILS % (AUTO) 1 % (0-10); HEMATOCRIT 37 % (40-54); HEMOGLOBIN 12.9 g/dL (13.3-17.7); LYMPHOCYTES # (AUTO) 0.1 10^3/uL (1.0-4.0); LYMPHOCYTES % (AUTO) 5 % (12-44); MEAN CORPUSCULAR HEMOGLOBIN 30 pg (25-34); MEAN CORPUSCULAR HGB CONC 35 g/dL (32-36); MEAN CORPUSCULAR VOLUME 86 fL (80-99); MEAN PLATELET VOLUME 10.9 fL (9.0-12.2); MONOCYTES # (AUTO) 0.1 10^3/uL (0.0-1.0); MONOCYTES % (AUTO) 5 % (0-12); NEUTROPHILS # (AUTO) 2.5 10^3/uL (1.8-7.8); NEUTROPHILS % (AUTO) 88 % (42-75); PLATELET COUNT 133 10^3/uL (130-400); POTASSIUM 4.2 MMOL/L (3.6-5.0); WHITE BLOOD COUNT 2.9 10^3/uL (4.3-11.0)
[2022-12-22 05:07] LABS: CALCIUM 7.7 MG/DL (8.5-10.1)
[2022-12-22 05:08] LABS: TOTAL PROTEIN 5.3 GM/DL (6.4-8.2)
[2022-12-22 05:10] LABS: BILIRUBIN,TOTAL 0.9 MG/DL (0.1-1.0)
[2022-12-22 05:11] LABS: PHOSPHORUS 1.1 MG/DL (2.3-4.7)
[2022-12-22 05:12] LABS: CREATININE SERUM 0.76 MG/DL (0.60-1.30)
[2022-12-22 05:14] LABS: MAGNESIUM 2.3 MG/DL (1.6-2.4)
[2022-12-22] MEDS: POTASSIUM CL 10MEQ/50ML IVPB 50 ML IV SCH (05:49)
[2022-12-22] MEDS: KCL 20 MEQ TAB (K-DUR) PO SCH (05:50)
[2022-12-22] MEDS: NOREPINEPHRINE 8 MG/250 ML 250 ML IV SCH (05:50)
[2022-12-22] MEDS: MAGNESIUM 1 GM/100 ML IVPB 100 ML IV SCH (05:50)
[2022-12-22] MEDS: DOXYCYCLINE INJECTION 100 MG in NS (IVPB) 100 ML IV SCH ×2 (08:27→20:22)
[2022-12-22] MEDS: FINASTERIDE (PROSCAR) 5 MG TAB PO SCH (08:27)
[2022-12-22] MEDS ORDERED: NON-FORMULARY MEDICATION 1 EA EA (Diclofenac Sodium 75 MG) PO SCH (09:00)
--- NOTE | 2022-12-22 09:03 | Progress Note - Hospitalist ---
Subjective HPI/CC On Admission Date Seen by Provider: Dec 22, 2022 Pt is a 72CM with a PMH of RA who presented to the ER due to AMS and fever. He is unable to provide any history. provides all history. He was fine two days ago but developed fever and chills yesterday. These progressed overnight and states he was vomiting and had diarrhea as well. She then found him down on the bathroom floor. She is unsure if he hit his head but is not as his basleine mentation. He had no focal ndeficits and CT head was done and negative for ICH. He was found to have a bandemia and fever. COVID was negative and no obvious source of infection was found. He was started on menigitis cover. later reports tick being found on him last week that she removed. No obvious rash though. Subjective/Events-last exam Pt reports feeling better. No complaints. RN states a little weak with transfer. Focused Exam Lactate Level 12/20/22 16:23: Lactic Acid Level 2.72*H 12/20/22 18:52: Lactic Acid Level 2.47*H 12/20/22 20:52: Lactic Acid Level 1.81 Time of Focused Exam: 11:30 Objective Exam Vital Signs Vital Signs Date Time Temp Pulse Resp B/P (MAP) Pulse Ox O2 Delivery O2 Flow Rate FiO2 12/22/22 08:00 37.2 12/22/22 07:31 121 12/22/22 06:00 25 119/82 (94) 94 Room Air 12/20/22 19:46 Capillary Refill : Less Than 3 Seconds General Appearance: No Apparent Distress Respiratory: Lungs Clear, No Respiratory Distress Cardiovascular: Regular Rate, Rhythm, No Murmur Gastrointestinal: Normal Bowel Sounds, Non Tender, Soft Neurologic/Psychiatric: Alert, Oriented x3 Results/Procedures Lab Laboratory Tests 12/22/22 04:19 Patient resulted labs reviewed. Imaging: Reviewed Imaging Report Assessment/Plan Assessment and Plan Assess & Plan/Chief Complaint Septic shock- improving AMS Recent tick bite Off pressors now Continue IV abx as he is improving DC Vanc LP done 12/20- CSF with no growth still and cell count not indicative of meningitis tick panel negative Repeat CXR with minimal edema CT head negative RA Immune compromised Hold home meds while acutely ill HLD NIDDMII BPH No acute needs Resume Proscar DV ppx: Lovenox Diagnosis/Problems Diagnosis/Problems (1) Sepsis (2) Altered mental status Status: Acute Qualifiers: Altered mental status type: unspecified Qualified Codes: R41.82 - Altered mental status, unspecified Clinical Quality Measures AMI/AHF: ASA po Prior to arrival: DAVID Sanabria MD Dec 22, 2022 09:03
[2022-12-22] MEDS: PREGABALIN 100 MG (LYRICA) CAPSULE PO SCH ×2 (09:52→20:22)
[2022-12-22] MEDS: ETODOLAC 300 MG (LODINE) CAP PO SCH ×2 (09:52→20:21)
[2022-12-22] MEDS: FOLIC ACID 1 MG TAB PO SCH (09:52)
[2022-12-22] MEDS: TAMSULOSIN 0.4 MG (FLOMAX) CAP PO SCH (09:52)
[2022-12-22 11:32] VITALS: BP 110/85
--- NOTE | 2022-12-22 11:36 | Physical Therapy Evaluation ---
PT Evaluation-General Medical Diagnosis Admission Date Dec 20, 2022 at 15:47 Medical Diagnosis: AMS, Fever Onset Date: Dec 21, 2022 Therapy Diagnosis Therapy Diagnosis: Gait deficit, strength deficit Precautions Precautions/Isolations: Fall Prevention, Standard Precautions Weight Bear Status Right Lower Extremity: Right Full Weight Bearing Left Lower Extremity: Left Full Weight Bearing Referral Physician: Dr. Montero Reason for Referral: Evaluation/Treatment Medical History Reviewed History: Yes Social History Home: Single Level Current Living Status: Spouse Entry Into Home: Stairs With Railing PT Steps Into Home: 6 Prior Prior Level of Function SCALE: Activities may be completed with or without assistive devices. 4-Ffjjqlgngc-sxajdqg completes the activity by him/herself with no assistance from a helper. 5-Set-up or Clean-up Assistance-helper sets up or cleans up; patient completes activity. [place] assists only prior to or following the activity. 4-Supervision or Touching Assistance-helper provides verbal cues and/or touching/steadying and/or contact guard assistance as patient completes activity. Assistance may be provided throughout the activity or intermittently. 3-Partial/Moderate Assistance-helper does LESS THAN HALF the effort. [place] lifts, holds or supports trunk or limbs, but provides less than half the effort. 2-Substantial/Maximal Assistance-helper does MORE THAN HALF the effort. [place] lifts or holds trunk or limbs and provides more than half the effort. 7-Eofowoyci-gjqppb does ALL the effort. Patient does none of the effort to complete the activity. Or, the assistance of 2 or more helpers is required for the patient to complete the activity. If activity was not attempted, code reason: 7-Patient Refused. 9-Not Applicable-not attempted and the patient did not perform the activity before the current illness, exacerbation or injury. 10-Not Attempted due to Environmental Limitations-(lack of equipment, weather restraints, etc.). 88-Not Attempted due to Medical Conditions or Safety Concerns. Bed Mobility: 6 Transfers (B,C,W/C): 6 Gait: 6 Stairs: 6 Indoor Mobility (Ambulation): Independent Stairs: Independent PT Evaluation-Current Subjective Patient sitting in chair, in the room, upon PT arrival, agreeable to treatment. Patient rates pain at 0/10. Objective Patient Orientation: Person Attachments: Browne Catheter ROM/Strength ROM Lower Extremities WFLs BLEs all planes Strength Lower Extremities 3+/5 BLEs all planes Sensory Vision: Functional Hearing: Functional Sensation Right Lower Extremit: Intact Sensation Left Lower Extremity: Intact Transfers Sit to Stand (QC): 3 Chair/Qms-lz-Akehx Xfer(QC): 3 Gait Does the Patient Walk?: Yes Mode of Locomotion: Walk Anticipated Mode of Locomotion: Walk Walk 10 feet (QC): 4 Walk 50 ft with 2 Turns(QC): 3 Gait Assistive Device: FWW Balance Sitting Static: Good Sitting Dynamic: Fair Standing Static: Fair Standing Dynamic: Fair Assessment/Needs Patient tolerated treatment fair. He performs all observed transfers with Min a. Patient ambulates 120 feet with FWW, with CGA and verbal cues for safety, progression and control of the FWW. Patient ambulates with narrow RANDA, shortened stride length bilaterally and tends to look at the ground throughout. Patient in chair post treatment with all needs met, nursing notified, in the room and call light in reach. Rehab Potential: Fair PT Nursing Home Goals Nursing Home Goals PT Car Hopper Goals Time Frame: January 08, 2023 Roll Left & Right (QC): 6 Sit to Lying (QC): 6 Lying-Sitting on Side/Bed(QC): 6 Sit to Stand (QC): 6 Chair/Hlr-so-Nuooa Xfer(QC): 6 Toilet Transfer (QC): 6 Does the Patient Walk: Yes Walk 10 feet (QC): 6 Walk 50ft with 2 Turns (QC): 6 Walk 150 ft (QC): 6 1 Step (curb) (QC): 4 4 Steps (QC): 4 12 Steps (QC): 4 PT Plan Problem List Problem List: Activity Tolerance, Functional Strength, Safety, Balance, Gait, Transfer, Bed Mobility, ROM Treatment/Plan Treatment Plan: Continue Plan of Care Treatment Plan: Bed Mobility, Education, Functional Activity Len, Functional Strength, Group Therapy, Gait, Safety, Therapeutic Exercise, Transfers Treatment Duration: January 29, 2023 Frequency: 6 times per week Estimated Hrs Per Day: .25 hour per day Patient and/or Family Agrees t: Yes Safety Risks/Education Patient Education: Gait Training, Transfer Techniques Teaching Recipient: Patient Teaching Methods: Demonstration, Discussion Response to Teaching: Reinforcement Needed Time Time In: 1058 Time Out: 1123 DATE: Dec 22, 2022 Total Billed Treatment Time: 25 Total Billed Treatment Visit, ALDAIR KAPOOR JOHN A PT Dec 22, 2022 11:36
[2022-12-22] MEDS: ACETAMINOPHEN 500 MG TAB (TYLENOL) PO PRN ×2 (11:49→19:21)
--- NOTE | 2022-12-22 13:56 | Occupational Therapy Eval ---
OT Evaluation-General/PLF Medical Diagnosis Admission Date Dec 20, 2022 at 15:47 Medical Diagnosis: AMS, Fever Onset Date: Dec 21, 2022 Therapy Diagnosis Therapy Diagnosis: weakness Precautions Precautions/Isolations: Fall Prevention, Standard Precautions Weight Bear Status Weight Bearing Restriction: Full Weight Bearing Referral Physician: Dr. 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 He is unable to provide any history. provides all history. He was fine two days ago but developed fever and chills yesterday. These progressed overnight and states he was vomiting and had diarrhea as well. She then found him down on the bathroom floor. She is unsure if he hit his head but is not as his basleine mentation. He had no focal deficits and CT head was done and negative for ICH. He was found to have a . COVID was negative and no obvious source of infection was found. He was started on menigitis cover. later reports tick being found on him last week that she removed. No obvious rash and negative tick panel. During Ot evaluation noted circular sores on dorsum of hand and forearm. 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 Both hands present w/ edema and left hand more significant than the right Social History Home: Single Level Current Living Status: Spouse Entry Into Home: Stairs With Railing Steps Into Home: 6 ADL-Prior Level of Function SCALE: Activities may be completed with or without assistive devices. 0-Bbwuvntsae-jdjstzg completes the activity by him/herself with no assistance from a helper. 5-Set-up or Clean-up Assistance-helper sets up or cleans up; patient completes activity. [place] assists only prior to or following the activity. 4-Supervision or Touching Assistance-helper provides verbal cues and/or touching/steadying and/or contact guard assistance as patient completes activity. Assistance may be provided throughout the activity or intermittently. 3-Partial/Moderate Assistance-helper does LESS THAN HALF the effort. [place] lifts, holds or supports trunk or limbs, but provides less than half the effort. 2-Substantial/Maximal Assistance-helper does MORE THAN HALF the effort. [place] lifts or holds trunk or limbs and provides more than half the effort. 6-Zzolgzufh-crdnxq does ALL the effort. Patient does none of the effort to complete the activity. Or, the assistance of 2 or more helpers is required for the patient to complete the activity. If activity was not attempted, code reason: 7-Patient Refused. 9-Not Applicable-not attempted and the patient did not perform the activity before the current illness, exacerbation or injury. 10-Not Attempted due to Environmental Limitations-(lack of equipment, weather restraints, etc.). 88-Not Attempted due to Medical Conditions or Safety Concerns. Self Care: Independent Functional Cognition: Independent Drive Self: Yes OT Current Status Subjective Up in recliner agreeable to OT Pain Numeric Pain Scale: 3 (left hand) Mental Status/Objective Patient Orientation: Person, Place, Time, Situation Slow responses to interview questions, turns in direction of frequently Attachments: Browne Catheter Current Upper Extremity ROM Decrease ROM LUE d/t AUTOMOTIVE SERVICE CONSULTANT, all other WFLS Upper Extremity Strength WFLs ADL-Treatment Eating (QC): 6 Oral Hygiene (QC): 5 Shower/Bathe Self (QC): 7 Upper Body Dressing (QC): 4 Lower Body Dressing (QC): 4 On/Off Footwear (QC): 5 Toileting Hygiene (QC): 5 Spouse reports normally patient does not require assistance w/ ADL, today patient is requiring minimal to CGA Education OT Patient Education: Correct positioning, Modified ADL techniques, Progress toward Goal/Update tx plan, Purpose of tx/functional activities, Reviewed precautions, Rehab process, Safety issues, Transfer techniques, Use of adapted equipment Teaching Recipient: Patient, Family Teaching Methods: Demonstration, Discussion Response to Teaching: Verbalize Understanding, Reinforcement Needed OT Paleobotanist Goals Fpc Goals Oral Hygiene (QC): 6 Toileting Hygiene (QC): 6 Shower/Bathe Self (QC): 6 Upper Body Dressing (QC): 6 Lower Body Dressing (QC): 6 On/Off Footwear (QC): 6 1=Demonstrate adherence to instructed precautions during ADL tasks. 2=Patient will verbalize/demonstrate understanding of assistive devices/modifications for ADL. 3=Patient will improve strength/tolerance for activity to enable patient to perform ADL's. OT Education/Plan Problem List/Assessment Assessment: Decreased Activ Tolerance, Decreased Safety Aware, Impaired Self- Care Skills Discharge Recommendations Plan/Recommendations: Continue POC Treatment Plan/Plan of Care Treatment,Training & Education: Yes Patient would benefit from OT for education, treatment and training to promote independence in ADL's, mobility, safety and/or upper extremity function for ADL's. Plan of Care: ADL Retraining, Functional Mobility, Group Exercise/Act as Ind, UE Funct Exercise/Act, UE Neuromus Re-Ed/Coord Treatment Duration: Dec 25, 2022 Frequency: 3 times per week (3-5 times per week) Estimated Hrs Per Day: .25 hour per day Agreement: Yes Rehab Potential: Fair Returned to recliner following evaluation, all needs met Time Start Time: 14:00 Stop Time: 14:15 DATE: Dec 22, 2022 Total Time Billed (hr/min): 15 Billed Treatment Time EVM 15 min JANE CHANDLER OT Dec 22, 2022 13:56
--- NOTE | 2022-12-22 14:18 | Physician Query Clarification ---
Physician Query-General Query to Physician: The medical record reflects the following clinical evidence: Clinical Indicators: AMS prior to admission, GCS 11/12 with lethargy, confusion on admission, did improve to 15, CT Head: No acute intracranial process, "CSF with no growth still and cell count not indicative of meningitis" Risk Factor(s): Severe sepsis with shock, Treatment: IV Fluid boluses, IV vancomycin IV, meropenem IV, Neuro monitoring Metabolic encephalopathy, present on admission, now resolved Other explanation of clinical findings Unable to determine (no explanation for clinical findings) Please clarify and document your clinical opinion in the progress notes and discharge summary including the definitive and/or presumptive diagnosis, (suspected or probable), related to the above clinical findings. Please include clinical findings supporting your diagnosis. Zuly Duran, MSN, RN Clinical Manufacturing Engineer Chief [phone] [email or web address] PHYSICIAN RESPONSE: Based on the clinical findings in the record, please respond to the query above on this document as an addendum. Physician Response: Physician Response Metabolic encephalopathy, present on admission, now resolved If you have questions please contact: Internal Review And Audit Compliance: Ext: Thank you for your time and cooperation. Clinical Manufacturing Engineer Chief/Internal Review And Audit Compliance This is a permanent part of the medical record ZULY DURAN Dec 22, 2022 14:18 DAVID BOYKIN MD Dec 22, 2022 15:18
[2022-12-22 16:09] VITALS: BP 129/74
[2022-12-22 19:27] VITALS: BP 115/66
[2022-12-22 19:32] VITALS: BP 115/66
[2022-12-22] MEDS ORDERED: RT-ALBUTEROL SULF 2.5 MG/3 ML PRE-MIX VIAL INH PRN (19:45)
[2022-12-22] MEDS: ROSUVASTATIN 20 MG (CRESTOR) TABLET PO SCH (20:21)
[2022-12-22] MEDS: MELATONIN 3 MG TABLET PO PRN (20:22)
[2022-12-22 23:53] VITALS: BP 98/60
[2022-12-23] MEDS: inSUlin ASPART (NovoLOG) 1 UNIT/0.01 ML (CHARGE PER UNIT) SC SCH ×5 (00:11→23:48)
[2022-12-23 03:04] VITALS: BP 105/64
[2022-12-23 04:42] LABS: BASOPHILS % (AUTO) 0 % (0-10); EOSINOPHILS # (AUTO) 0.1 10^3/uL (0.0-0.3); EOSINOPHILS % (AUTO) 3 % (0-10); HEMATOCRIT 34 % (40-54); HEMOGLOBIN 11.8 g/dL (13.3-17.7); LYMPHOCYTES # (AUTO) 0.3 10^3/uL (1.0-4.0); LYMPHOCYTES % (AUTO) 12 % (12-44); MEAN CORPUSCULAR HEMOGLOBIN 30 pg (25-34); MEAN CORPUSCULAR HGB CONC 35 g/dL (32-36); MEAN CORPUSCULAR VOLUME 85 fL (80-99); MEAN PLATELET VOLUME 10.7 fL (9.0-12.2); MONOCYTES # (AUTO) 0.2 10^3/uL (0.0-1.0); MONOCYTES % (AUTO) 9 % (0-12); NEUTROPHILS # (AUTO) 1.7 10^3/uL (1.8-7.8); NEUTROPHILS % (AUTO) 74 % (42-75); PLATELET COUNT 113 10^3/uL (130-400); WHITE BLOOD COUNT 2.3 10^3/uL (4.3-11.0)
[2022-12-23 04:51] LABS: ALBUMIN 2.7 GM/DL (3.2-4.5); POTASSIUM 3.7 MMOL/L (3.6-5.0)
[2022-12-23 04:53] LABS: CALCIUM 8.1 MG/DL (8.5-10.1)
[2022-12-23 04:54] LABS: TOTAL PROTEIN 5.2 GM/DL (6.4-8.2)
[2022-12-23 04:56] LABS: BILIRUBIN,TOTAL 0.9 MG/DL (0.1-1.0)
[2022-12-23 04:57] LABS: CREATININE SERUM 0.79 MG/DL (0.60-1.30)
[2022-12-23 05:00] LABS: MAGNESIUM 2.3 MG/DL (1.6-2.4)
[2022-12-23] MEDS: POTASSIUM CL 10MEQ/50ML IVPB 50 ML IV SCH (05:06)
[2022-12-23] MEDS: MAGNESIUM 1 GM/100 ML IVPB 100 ML IV SCH (05:07)
[2022-12-23] MEDS: KCL 20 MEQ TAB (K-DUR) PO SCH (05:07)
[2022-12-23] MEDS: MEROPENEM 500 MG in NS (IVPB) 100 ML IV SCH ×4 (05:31→23:20)
[2022-12-23 07:11] VITALS: BP 118/76
--- NOTE | 2022-12-23 07:52 | Occupational Ther Daily Note ---
OT Current Status-Daily Note Subjective OT arrived w/ patient exiting bathroom w/ staff, transfer to recliner and OT handed patient socks for feet, Patient agrees to participate Mental Status/Objective Patient Orientation: Situation ADL-Treatment OT handed patient socks and patient reports he doesn't use socks at home contradictory to evaluation report, patient agrees to don socks in recliner Therapy Code Descriptions/Definitions Functional [place] Measure: 0=Not Assessed/NA 4=Minimal Assistance 1=Total Assistance 5=Supervision or Setup 2=Maximal Assistance 6=Modified [place] 3=Moderate Assistance 7=Complete IndependenceSCALE: Activities may be completed with or without assistive devices. 5-Bjlapntium-hzhflyo completes the activity by him/herself with no assistance from a helper. 5-Set-up or Clean-up Assistance-helper sets up or cleans up; patient completes activity. [place] assists only prior to or following the activity. 4-Supervision or Touching Assistance-helper provides verbal cues and/or touching/steadying and/or contact guard assistance as patient completes activity. Assistance may be provided throughout the activity or intermittently. 3-Partial/Moderate Assistance-helper does LESS THAN HALF the effort. [place] lifts, holds or supports trunk or limbs, but provides less than half the effort. 2-Substantial/Maximal Assistance-helper does MORE THAN HALF the effort. [place] lifts or holds trunk or limbs and provides more than half the effort. 3-Mncnjnqsy-zupxdf does ALL the effort. Patient does none of the effort to complete the activity. Or, the assistance of 2 or more helpers is required for the patient to complete the activity. If activity was not attempted, code reason: 7-Patient Refused. 9-Not Applicable-not attempted and the patient did not perform the activity before the current illness, exacerbation or injury. 10-Not Attempted due to Environmental Limitations-(lack of equipment, weather restraints, etc.). 88-Not Attempted due to Medical Conditions or Safety Concerns. Eating (QC): 6 Oral Hygiene (QC): 5 Shower/Bathe Self (QC): 7 Upper Body Dressing (QC): 4 Lower Body Dressing (QC): 4 On/Off Footwear: 5 (requires extra time) Toileting Hygiene (QC): 4 Toilet Transfer (QC): 4 Patient report urine incontinence, also rep[orts this happens at home sometimes, sudden urine urgency and not enough time to get to the rest room Education OT Patient Education: Correct positioning, Energy conservation, Modified ADL techniques, Progress toward Goal/Update tx plan, Purpose of tx/functional activities, Reviewed precautions, Rehab process, Safety issues, Transfer techniques Teaching Recipient: Patient Teaching Methods: Demonstration, Discussion Response to Teaching: Reinforcement Needed OT Care Home Goals Crack Off Person Goals Oral Hygiene (QC): 6 Toileting Hygiene (QC): 6 Shower/Bathe Self (QC): 6 Upper Body Dressing (QC): 6 Lower Body Dressing (QC): 6 On/Off Footwear (QC): 6 1=Demonstrate adherence to instructed precautions during ADL tasks. 2=Patient will verbalize/demonstrate understanding of assistive devices/modifications for ADL. 3=Patient will improve strength/tolerance for activity to enable patient to perform ADL's. OT Education/Plan Problem List/Assessment Assessment: Decreased Activ Tolerance, Decreased Safety Aware, Impaired Self- Care Skills Discharge Recommendations Plan/Recommendations: Continue POC Treatment Plan/Plan of Care Patient would benefit from OT for education, treatment and training to promote independence in ADL's, mobility, safety and/or upper extremity function for ADL's. Plan of Care: ADL Retraining, Functional Mobility, Group Exercise/Act as Ind, UE Funct Exercise/Act, UE Neuromus Re-Ed/Coord Treatment Duration: Dec 25, 2022 Frequency: 3 times per week (3-5 times per week) Estimated Hrs Per Day: .25 hour per day Agreement: Yes Rehab Potential: Fair Remains up in recliner all needs met Time Start Time: 07:40 Stop Time: 08:03 DATE: Dec 23, 2022 Total Time Billed (hr/min): 23 Billed Treatment Time ADL 23 min JANE CHANDLER OT Dec 23, 2022 07:52
[2022-12-23] MEDS ORDERED: KCL 20 MEQ TAB (K-DUR) PO ONE (09:00)
[2022-12-23] MEDS: TAMSULOSIN 0.4 MG (FLOMAX) CAP PO SCH (09:01)
[2022-12-23] MEDS: PREGABALIN 100 MG (LYRICA) CAPSULE PO SCH ×2 (09:01→19:43)
[2022-12-23] MEDS: ETODOLAC 300 MG (LODINE) CAP PO SCH ×2 (09:01→19:43)
[2022-12-23] MEDS: FOLIC ACID 1 MG TAB PO SCH (09:01)
[2022-12-23] MEDS: FINASTERIDE (PROSCAR) 5 MG TAB PO SCH (09:01)
[2022-12-23] MEDS: DOXYCYCLINE INJECTION 100 MG in NS (IVPB) 100 ML IV SCH (09:02)
--- NOTE | 2022-12-23 09:52 | Physical Therapy Daily Note ---
PT Daily Note-Current Subjective Patient agrees to PT. Spouse present Pain Section J - Health Conditions 1. Rarely or not at all 2. Occasionally 3. Frequently 4. Almost constantly 8. Unable to answer Pain Effect on Sleep: 1 Pain Interference with Therapy: 1 Pain Interference w/Day-to-Day: 1 Mental Status Patient Orientation: Normal For Age Attachments: IV Transfers SCALE: Activities may be completed with or without assistive devices. 9-Uhagvtlwwo-iqbfnvh completes the activity by him/herself with no assistance from a helper. 5-Set-up or Clean-up Assistance-helper sets up or cleans up; patient completes activity. [place] assists only prior to or following the activity. 4-Supervision or Touching Assistance-helper provides verbal cues and/or touching/steadying and/or contact guard assistance as patient completes activity. Assistance may be provided throughout the activity or intermittently. 3-Partial/Moderate Assistance-helper does LESS THAN HALF the effort. [place] lifts, holds or supports trunk or limbs, but provides less than half the effort. 2-Substantial/Maximal Assistance-helper does MORE THAN HALF the effort. [place] lifts or holds trunk or limbs and provides more than half the effort. 9-Dkvvwbuki-gqcgec does ALL the effort. Patient does none of the effort to complete the activity. Or, the assistance of 2 or more helpers is required for the patient to complete the activity. If activity was not attempted, code reason: 7-Patient Refused. 9-Not Applicable-not attempted and the patient did not perform the activity before the current illness, exacerbation or injury. 10-Not Attempted due to Environmental Limitations-(lack of equipment, weather restraints, etc.). 88-Not Attempted due to Medical Conditions or Safety Concerns. Sit to Lying (QC): 6 Lying to Sitting/Side of Bed(Q: 6 Sit to Stand (QC): 4 Weight Bearing Right Lower Extremity: Right Full Weight Bearing Left Lower Extremity: Left Full Weight Bearing Gait Training Distance: 400' Walk 10 feet (QC): 4 Walk 50 ft with 2 Turns(QC): 4 Walk 150 ft (QC): 4 Gait Assistive Device: FWW NBOS/steady, functional gait sequence Assessment Patient much improved on this date and returned to bed with needs met. PT to continue to increase activity as tolerated by patient. PT Jail Goals Computer Terminal Operator Goals PT Computer Terminal Operator Goals Time Frame: January 08, 2023 Roll Left & Right (QC): 6 Sit to Lying (QC): 6 Lying-Sitting on Side/Bed(QC): 6 Sit to Stand (QC): 6 Chair/Dtp-yp-Tcgfs Xfer(QC): 6 Toilet Transfer (QC): 6 Does the Patient Walk: Yes Walk 10 feet (QC): 6 Walk 50ft with 2 Turns (QC): 6 Walk 150 ft (QC): 6 1 Step (curb) (QC): 4 4 Steps (QC): 4 12 Steps (QC): 4 PT Plan Treatment/Plan Treatment Plan: Continue Plan of Care Treatment Plan: Bed Mobility, Education, Functional Activity Len, Functional Strength, Group Therapy, Gait, Safety, Therapeutic Exercise, Transfers Treatment Duration: January 29, 2023 Frequency: 6 times per week Estimated Hrs Per Day: .25 hour per day Patient and/or Family Agrees t: Yes Time Time In: 925 Time Out: 941 DATE: Dec 23, 2022 Total Billed Treatment Time: 16 Total Billed Treatment 1 visit FA 16 min ALVARO GUERRA PT Dec 23, 2022 09:52
[2022-12-23 11:33] VITALS: BP 122/77
--- NOTE | 2022-12-23 14:42 | Progress Note - Hospitalist ---
Subjective HPI/CC On Admission Date Seen by Provider: Dec 23, 2022 Pt is a 72CM with a PMH of RA who presented to the ER due to AMS and fever. He is unable to provide any history. provides all history. He was fine two days ago but developed fever and chills yesterday. These progressed overnight and states he was vomiting and had diarrhea as well. She then found him down on the bathroom floor. She is unsure if he hit his head but is not as his basleine mentation. He had no focal ndeficits and CT head was done and negative for ICH. He was found to have a bandemia and fever. COVID was negative and no obvious source of infection was found. He was started on menigitis cover. later reports tick being found on him last week that she removed. No obvious rash though. Subjective/Events-last exam Pt reports feeling much better. Up out of bed. Still not quite back to his normal strength, maybe 50%. Focused Exam Lactate Level 12/20/22 16:23: Lactic Acid Level 2.72*H 12/20/22 18:52: Lactic Acid Level 2.47*H 12/20/22 20:52: Lactic Acid Level 1.81 Time of Focused Exam: 11:30 Objective Exam Vital Signs Vital Signs Date Time Temp Pulse Resp B/P (MAP) Pulse Ox O2 Delivery O2 Flow Rate FiO2 12/23/22 11:33 36.6 95 18 122/77 (92) 94 Room Air 12/23/22 09:17 0.00 12/22/22 19:43 21 Capillary Refill : Less Than 3 Seconds General Appearance: No Apparent Distress Respiratory: Lungs Clear, No Respiratory Distress Cardiovascular: Regular Rate, Rhythm, No Murmur Neurologic/Psychiatric: Alert, Oriented x3 Results/Procedures Lab Laboratory Tests 12/23/22 04:34 Patient resulted labs reviewed. Imaging: Reviewed Imaging Report Assessment/Plan Assessment and Plan Assess & Plan/Chief Complaint Septic shock- improving AMS Recent tick bite Continue IV abx, dc doxycycline LP done 12/20- CSF with no growth tick panel negative Hopefully home tomorrow RA Immune compromised Hold home meds while acutely ill Has appt with rheum tomorrow, will try to DC in time to keep appt HLD NIDDMII BPH No acute needs Continue Proscar DV ppx: Lovenox Diagnosis/Problems Diagnosis/Problems (1) Sepsis (2) Altered mental status Status: Acute Qualifiers: Altered mental status type: unspecified Qualified Codes: R41.82 - Altered mental status, unspecified Clinical Quality Measures AMI/AHF: ASA po Prior to arrival: DAVID Sanabria MD Dec 23, 2022 2:42 pm
--- NOTE | 2022-12-23 15:07 | D/C HH Face to Face Order ---
D/C Face to Face Orders Instructions for Patient Via [facility], Patient Instructions/FollowUp: Please continue to take your medications as written. Please follow up with your primary care doctor to follow up this hospital stay. Physician to follow Patient: Dr Jason Grijalva Discharge Diet for Home: No Restrictions Patient Data-Allergies,Ht & Wt Patient Allergies: Coded Allergies: amoxicillin (Verified Allergy, Unknown, 12/20/22) Home Health Need/Face to Face Date of Face to Face: Dec 23, 2022 Clinical Findings: Generalized weakness and fatigue I have seen Pt [id number]: Yes Discharged To: Home Diagnosis/Conditions: Septic Shock Patient is Homebound due to: CognItive deficits Homebound Status Due to the above stated illness, injury or surgical procedure (medical condition or diagnosis) and associated clinical findings, the patient is homebound because of his/her inability to leave home except with aid of a s upportive device and/or person AND leaving the home requires a considerable and taxing effort or is medically contraindicated. Pt req the following assistanc: Aid of another person, Walker Home Health Nursing Orders Home Health Services Order: Nursing Services, Physical Therapy-Evaluate & Treat Home Health Infusion Therapy Line Start Date: Dec 21, 2022 Therapy Orders Therapy Orders: Physical Therapy, PT to assess for OT Therapy Specific Orders: Eval assistive deivces, Teach enviro modifica tions/safety, Gait training, Increase strength/endurance Certify Stmt I certify that this patient is under my care and that I, a nurse practitioner or a physician; a surgical physician assistant working with me, had a face to face encounter that -meets the physician face to face encounter requirements with this patient as dated. DAVID BOYKIN MD Dec 23, 2022 15:07
[2022-12-23 15:52] VITALS: BP 130/82
[2022-12-23] MEDS: ACETAMINOPHEN 500 MG TAB (TYLENOL) PO PRN (18:43)
[2022-12-23] MEDS ORDERED: diphenhydrAMINE 50 MG/ML INJ (BENADRYL) IVP NR (19:15)
[2022-12-23] MEDS: ROSUVASTATIN 20 MG (CRESTOR) TABLET PO SCH (19:42)
[2022-12-23 19:54] VITALS: BP 113/68
[2022-12-24] VITALS: BP 103/70
[2022-12-24 04:00] VITALS: BP 104/57
[2022-12-24 04:51] LABS: BASOPHILS % (AUTO) 1 % (0-10); EOSINOPHILS # (AUTO) 0.1 10^3/uL (0.0-0.3); EOSINOPHILS % (AUTO) 4 % (0-10); HEMATOCRIT 33 % (40-54); HEMOGLOBIN 11.7 g/dL (13.3-17.7); LYMPHOCYTES # (AUTO) 0.7 10^3/uL (1.0-4.0); LYMPHOCYTES % (AUTO) 20 % (12-44); MEAN CORPUSCULAR HEMOGLOBIN 30 pg (25-34); MEAN CORPUSCULAR HGB CONC 35 g/dL (32-36); MEAN CORPUSCULAR VOLUME 85 fL (80-99); MEAN PLATELET VOLUME 10.7 fL (9.0-12.2); MONOCYTES # (AUTO) 0.4 10^3/uL (0.0-1.0); MONOCYTES % (AUTO) 12 % (0-12); NEUTROPHILS # (AUTO) 2.2 10^3/uL (1.8-7.8); NEUTROPHILS % (AUTO) 63 % (42-75); PLATELET COUNT 140 10^3/uL (130-400); WHITE BLOOD COUNT 3.5 10^3/uL (4.3-11.0)
[2022-12-24 05:01] LABS: ALBUMIN 2.6 GM/DL (3.2-4.5); POTASSIUM 3.4 MMOL/L (3.6-5.0)
[2022-12-24 05:02] LABS: CALCIUM 8.2 MG/DL (8.5-10.1)
[2022-12-24] MEDS: POTASSIUM CL 10MEQ/50ML IVPB 50 ML IV SCH (05:02)
[2022-12-24] MEDS: KCL 20 MEQ TAB (K-DUR) PO SCH (05:03)
[2022-12-24 05:04] LABS: TOTAL PROTEIN 5.2 GM/DL (6.4-8.2)
[2022-12-24 05:05] LABS: BILIRUBIN,TOTAL 0.8 MG/DL (0.1-1.0)
[2022-12-24 05:07] LABS: CREATININE SERUM 0.71 MG/DL (0.60-1.30)
[2022-12-24] MEDS: inSUlin ASPART (NovoLOG) 1 UNIT/0.01 ML (CHARGE PER UNIT) SC SCH ×2 (05:32→11:35)
[2022-12-24] MEDS: MAGNESIUM 1 GM/100 ML IVPB 100 ML IV SCH (05:40)
[2022-12-24] MEDS: MEROPENEM 500 MG in NS (IVPB) 100 ML IV SCH ×2 (05:45→11:35)
[2022-12-24] MEDS ORDERED: KCL 20 MEQ TAB (K-DUR) PO ONE (06:00)
[2022-12-24] MEDS ORDERED: UPAD15TA PO (08:38)
[2022-12-24] MEDS ORDERED: PRED10TA22 PO (08:38)
[2022-12-24] MEDS ORDERED: CEFD300C3 PO (08:38)
--- NOTE | 2022-12-24 08:39 | Discharge Summary ---
Diagnosis/Chief Complaint Date of Admission Dec 20, 2022 at 15:47 Date of Discharge Discharge Date: Dec 23, 2022 Admission Diagnosis Sepsis Primary Care Jason Grijalva DO Discharge Diagnosis (1) Sepsis (2) Altered mental status Status: Acute Discharge Summary Discharge Physical Exam Allergies: Coded Allergies: amoxicillin (Verified Allergy, Unknown, 12/20/22) Vitals & I&Os Vital Signs Date Time Temp Pulse Resp B/P (MAP) Pulse Ox O2 Delivery O2 Flow Rate FiO2 12/24/22 12:40 12/24/22 10:25 95 Room Air 0.00 12/24/22 08:49 36.6 91 19 12/22/22 19:43 21 General Appearance: No Apparent Distress, WD/WN, Chronically ill Cardiovascular: Regular Rate, Rhythm, No Murmur Neurologic/Psychiatric: Alert, Oriented x3 Hospital Course Patient was admitted to the hospital secondary to septic shock. He presented to the ER with altered mental status and fever and source was unclear at the time of admission so he underwent significant work-up including LP. Most of this work-up was negative including a tick panel. He did grow beta-hemolytic strep from a wound culture on his hand. He was treated with broad-spectrum antibiotics to cover for meningitis tickborne illness and both gram-positive and gram-negative bacteria. He improved and was slowly weaned off of antibiotics based off clinical symptoms. 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 He did have some mild edema and redness around the wound on his left hand though it at first did not seem significant enough to account for the severity of his illness. He is on chronic immunosuppressants due to his rh eumatoid arthritis ultimately this was deemed to be the source and sepsis was complicated by immunosuppression. The day before discharge he did develop urticarial rash across his chest that responded to Benadryl. 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 He has follow-up today a t that appointment to see about when to restart his immune suppressants. He was continued on oral antibiotics and I did send steroids due to the rash as well. He is to follow-up with his primary care physician to follow-up this hospital stay as well. Labs (last 24 hrs) Microbiology 12/20/22 MRSA Screen - Final, Complete MRSA not isolated 12/20/22 Gram Stain - Final, Complete 12/20/22 CSF Culture - Final, Complete No growth 12/20/22 Gram Stain - Final, Complete 12/20/22 Wound Culture - Final, Complete Strep, Beta Hemolytic Group A See Comments Gram Pos Mixed Bacterial Darby 12/20/22 Urine Culture - Final, Complete NO GROWTH 12/20/22 Blood Culture - Final, Complete No growth Patient resulted labs reviewed. Pending Labs Imaging: Reviewed Imaging Report Discussion & Recommendations Discharge Planning: >30 minutes discharge planning Discharge Home Medications: Active Scripts Active Prednisone 10 Mg Tab.ds.pk 10 Mg PO DAILY Take 6 tabs(60mg)daily,decrease by 1 tab(10MG)daily. Cefdinir 300 Mg Capsule 300 Mg PO BID Rinvoq ER (Upadacitinib) 15 Mg Tab.er.24h 15 Mg PO DAILY Resume this when your brake adjuster tells you to Reported Magnesium 250 Mg Tablet 250 Mg PO DAILY Zinc (Zinc Amino Acid Chelate) 50 Mg Tablet 50 Mg PO DAILY Biotin 10,000 Mcg Capsule 10,000 Mcg PO DAILY Coq-10 (Ubidecarenone) 100 Mg Capsule 100 Mg PO DAILY Krill Oil 500 mg Softgel (Krill/Om-3/Dha/Epa/Phospho/Ast) 500MG-86MG Capsule 1 Each PO DAILY Vitamin B-12 (Cyanocobalamin (Vitamin B-12)) 1,000 Mcg Tablet 1,000 Mcg PO DAILY Vitamin D3 (Cholecalciferol (Vitamin D3)) 50 Mcg (2000 Unit) Capsule 50 Mcg PO DAILY Niacin 500 Mg Tablet 1,000 Mg PO DAILY Folic Acid 1 Mg Tablet 1 Mg PO DAILY Rosuvastatin Calcium 20 Mg Tablet 10 Mg PO HS Flomax (Tamsulosin HCl) 0.4 Mg Cap 0.4 Mg PO DAILY Pregabalin 100 Mg Capsule 100 Mg PO BID Finasteride 5 Mg Tablet 5 Mg PO DAILY Metformin HCl 500 Mg Tablet 500 Mg PO BID Diclofenac Sodium 75 Mg Tablet. 75 Mg PO BID Instructions to patient/family Please see electronic discharge instructions given to patient. Clinical Quality Measures AMI/AHF: ASA po Prior to arrival: No Copy Copies To 1: Dr Jason Grijalva Problem Qualifiers (1) Altered mental status: Altered mental status type: unspecified Qualified Codes: R41.82 - Altered mental status, unspecified DAVID BOYKIN MD Dec 24, 2022 08:39
[2022-12-24 08:49] VITALS: BP 122/83
[2022-12-24] MEDS: FINASTERIDE (PROSCAR) 5 MG TAB PO SCH (09:57)
[2022-12-24] MEDS: PREGABALIN 100 MG (LYRICA) CAPSULE PO SCH (09:57)
[2022-12-24] MEDS: FOLIC ACID 1 MG TAB PO SCH (09:57)
[2022-12-24] MEDS: ETODOLAC 300 MG (LODINE) CAP PO SCH (09:57)
[2022-12-24] MEDS: TAMSULOSIN 0.4 MG (FLOMAX) CAP PO SCH (09:57)
== END 2022-12-24 14:54 | disposition home health service (06) | DRG 871 ==
LOC: ER 09:10 → ICU 15:47 → 4TH 12-22 10:28
PROVIDERS: ADMIT Family Medicine; ATTEND Family Medicine
DX: A41.9 Sepsis, unspecified organism (principal); G93.41 Metabolic encephalopathy; R65.21 Severe sepsis with septic shock; N17.9 Acute kidney failure, unspecified; Z20.822 Contact with and (suspected) exposure to COVID-19; M06.9 Rheumatoid arthritis, unspecified; E78.5 Hyperlipidemia, unspecified; E11.9 Type 2 diabetes mellitus without complications; N40.0 Benign prostatic hyperplasia without lower urinary tract symptoms; F17.220 Nicotine dependence, chewing tobacco, uncomplicated; E86.0 Dehydration
CPT/HCPCS: 36410; 36415; 51702; 62270; 70450; 71045; 72125; 76937; 80053; 81000; 82805; 82945; 82947; 83605; 83735; 84100; 84157; 84484; 85007; 85025; 85027; 85610; 85730; 86618; 86666; 86668; 86757; 87040; 87070; 87077; 87081; 87088; 87205; 87636; 89051; 93005; 94640; 94760